=== PATIENT | female | born 1945 | race Caucasian/White ===

== ENCOUNTER → 2020-11-27 11:32 | Outpatient (CLI) | payer MEDICARE, SELFPAY ==
--- NOTE | 2020-11-27 11:37 | US_ITS ---
PROCEDURE: ULTRASOUND GUIDED LEFT THYROID FNA/BIOPSY. DATE: INDICATION: Female, 74 years old. Left thyroid nodule. PHYSICIAN: David Nielson M.D. MEDICATIONS: 2% lidocaine administered subcutaneously for local anesthesia. ACCESS SITE: Left - anterior approach. NEEDLE: 25-gauge FNA needle. SPECIMEN: Multiple FNA specimen collected and given to pathology. EBL: None. COMPLICATIONS: None immediate. PROCEDURE: The risks, benefits, and alternatives to the procedure were explained to the patient. The specific risk of hemorrhage requiring further treatment or intervention was detailed and accepted. Written informed consent was obtained. The patient was brought into the ultrasound room and placed in the supine position on the stretcher. An appropriate entry site was identified. The overlying skin was prepped and draped in the usual sterile fashion. 2% lidocaine was administered subcutaneously for local anesthesia. Under ultrasound guidance, a 25-gauge FNA needle was advanced into the lesion. Aspiration was performed and the needle was withdrawn. A total of 3 passes were performed with specimen collected and given to the pathologist who was present during the procedure. Hemostasis was achieved with manual compression. Repeat ultrasound images of the biopsy area was performed which demonstrated no gross bleeding or hematoma. An antibiotic ointment dressing was placed and the patient was given an icepack. The patient tolerated the procedure well without immediate complications. The patient was discharged in stable condition. US/FNA 1st Biopsy w/ US IMPRESSION: Successful ultrasound-guided left thyroid nodule FNA/biopsy, as described above. Electronically Signed: David Nielson MD at 12:56 EDT , Service support ,
--- NOTE | 2020-11-27 12:30 | ASPIG_PTH ---
PATIENT: SRIDEVI WILDER LOC: U#:[id number] AGE/SX: 79/F ROOM: RE11/27/[address]: Dr. Asad Dimas MD : 1945 BED: DIS: SPEC #: [id number] RECD: 11/27/20 12:51 STATUS: MARQUIS TETO #: [id number] SAWYER: 11/27/20 12:[address]: Asad Dimas DEPT: CYTOLOGY RECD BY: Erika Carlson Tissues: Thyroid gland, NOS Procedures: FNA Specimen Adequacy Special Stain Group II Surgery Specimen Level IV Cytology Other HEADER OPERATION: Ultrasound-guided left thyroid biopsy/fine needle aspiration PRE-OP DIAGNOSIS: Left thyroid nodule TISSUE SUBMITTED: Left thyroid ultrasound-guided FNA DIAGNOSIS CYTOLOGY Left thyroid nodule, ultrasound-guided FNA (smears and cell block): Consistent with benign follicular/colloid nodule. Adequate for evaluation. See comment. PALOMO:hansel 11/28/2020 COMMENT The specimen is evaluated at the time of biopsy by Dr. Mckay. Immediate Evaluation = Follicular cells are present. Adequate for evaluation. Correlation with clinical, radiologic findings and appropriate follow up are necessary. CYTOLOGY STUDY Slides are reviewed. CYTOLOGY GROSS Received is 0.5 ml of bloody fluid (three passes) labeled with the patient's name, and designated left thyroid. Seven imprints and seven paps are made from the submitted fluid and the rest is added to CytoLyt for cell block preparation. Submitted for cytology study. / SJ:rg 11/27/2020 TC:5 CPT: 43909, 63130, 07731
== END ==
PROVIDERS: PCP Family Medicine; Referring Provider Family Medicine; Visit Provider Family Medicine
DX: E04.1 Nontoxic single thyroid nodule (principal)
CPT/HCPCS: 10005; 88161; 88172; 88305; 88313

== ENCOUNTER → 2020-12-01 10:02 | Outpatient (CLI) | payer MEDICARE, SELFPAY ==
[2016-11-09 21:18] VITALS: BMI 32.3
--- NOTE | 2020-12-01 | EMB_PTH ---
PATIENT: SRIDEVI WILDER LOC: [facility] U#:[id number] AGE/SX: 79/F ROOM: RE12/01/[address]: Dr. Linus Cerda MD : 1945 BED: DIS: SPEC #: [id number] RECD: 12/01/20 11:49 STATUS: MARQUIS REQ #: [id number] SAWYER: 12/01/20 00:[address]: Linus Cerda DEPT: SURGICAL PATHOLOGY RECD BY: Randy Segundo ENTERED: 12/01/20 11:49 SP TYPE: ENDOM BX/C SUSAN DR: Dr. Asad Dimas MD Tissues: Endometrium, NOS Procedures: Surgery Specimen Level IV HEADER OPERATION: Endometrial biopsy PRE-OP DIAGNOSIS: Pelvic mass TISSUE SUBMITTED: Endometrial biopsy MICROSCOPIC DIAGNOSIS Endometrial biopsy: Strips of benign endometrial epithelium, consistent with atrophic endometrium and mucous. See comment. PALOMO:hansel 12/04/2020 COMMENT Clinical correlation and appropriate follow up are necessary. MICROSCOPIC DESCRIPTION Slides are reviewed. GROSS DESCRIPTION Received in fixative is one container labeled with the patient's name and designated EM biopsy. The specimen consists of multiple irregular fragments of schmidt mucoid tissue that in aggregate measure 2.5 x 0.2 x 0.1 cm. The specimen is totally submitted in one cassette. / SJ:rg 12/01/20 TC:4 CPT: 78138
[2020-12-05 15:50] LABS: Carcinoembryonic Antigen 1.1 ng/mL (0.0-4.7)
[2020-12-05 15:51] LABS: Carbohydrate Ag 19-9 2261 6 U/mL (0-35)
== END ==
PROVIDERS: PCP Family Medicine; Visit Provider Obstetrics & Gynecology
DX: R19.00 Intra-abdominal and pelvic swelling, mass and lump, unspecified site (principal)
CPT/HCPCS: 36415; 82378; 86301; 86304; 88305

== ENCOUNTER → 2021-06-11 12:27 | Outpatient (CLI) | payer MEDICARE, SELFPAY ==
--- NOTE | 2021-06-11 12:32 | US_ITS ---
STUDY: THYROID ULTRASOUND REASON FOR EXAM: Female, 75 years old. Thyroid nodules. TECHNIQUE: Ultrasound evaluation of the thyroid was performed with real-time and static pittman-scale imaging. COMPARISON: None. FINDINGS: RIGHT LOBE: The right lobe of the thyroid gland is enlarged and measures 6.1 cm x 2.8 cm x 3.1 cm. There is a heterogeneous echotexture. Multiple solid enhancing nodular thickening throughout the lobe. The largest in the mid portion of the right lobe and measures 2.7 cm x 2 cm x 1.5 cm.. Perinodular vascularity is seen. LEFT LOBE: The left lobe of the thyroid gland is enlarged and measures 10.1 cm x 6.6 cm x 4.6 cm. There is a heterogeneous echotexture. There is an 8.1 cm x 5.5 cm x 4.6 cm complex solid and cystic nodule. This nodule was biopsied on 11/27/2020. ISTHMUS: The isthmus measures 6 mm. The regional lymph nodes are normal. US/Thyroid IMPRESSION: Diffuse enlargement of both lobes of the thyroid gland. Dominant 8.1 cm x 5.5 cm x 4.6 cm complex solid and cystic mass in the left lobe as well as a dominant 2.7 cm x 2 cm x 1.5 cm solid and cystic mass in the right lobe. Electronically Signed: David Nielson MD at 12:27 EST , Service support ,
== END ==
PROVIDERS: PCP Family Medicine; Referring Provider Family Medicine; Visit Provider Family Medicine
DX: E04.1 Nontoxic single thyroid nodule (principal)
CPT/HCPCS: 76536

== ENCOUNTER → 2021-06-25 11:31 | Outpatient (CLI) | payer MEDICARE, SELFPAY ==
--- NOTE | 2021-06-25 11:36 | US_ITS ---
PROCEDURE: ULTRASOUND GUIDED RIGHT THYROID FNA/BIOPSY. DATE: 06/25/2021. INDICATION: Female, 75 years old. Heterogeneous nodules in the right lobe of the thyroid. PHYSICIAN: David Nielson M.D. MEDICATIONS: 2% lidocaine administered subcutaneously for local anesthesia. ACCESS SITE: Right - anterior approach. NEEDLE: 25-gauge FNA needle. SPECIMEN: Multiple FNA specimen collected and given to pathology. EBL: None. COMPLICATIONS: None immediate. PROCEDURE: The risks, benefits, and alternatives to the procedure were explained to the patient. The specific risk of hemorrhage requiring further treatment or intervention was detailed and accepted. Written informed consent was obtained. The patient was brought into the ultrasound room and placed in the supine position on the stretcher. An appropriate entry site was identified. The overlying skin was prepped and draped in the usual sterile fashion. 2% lidocaine was administered subcutaneously for local anesthesia. Under ultrasound guidance, a 25-gauge FNA needle was advanced into the lesion. Aspiration was performed and the needle was withdrawn. A total of 3 passes were performed with specimen collected and given to the pathologist who was present during the procedure. Hemostasis was achieved with manual compression. Repeat ultrasound images of the biopsy area was performed which demonstrated no gross bleeding or hematoma. An antibiotic ointment dressing was placed and the patient was given an icepack. The patient tolerated the procedure well without immediate complications. The patient was discharged in stable condition. US/FNA 1st Biopsy w/ US IMPRESSION: Successful ultrasound-guided right thyroid nodule FNA/biopsy, as described above. Electronically Signed: David Nielson MD at 12:47 EST , Service support ,
--- NOTE | 2021-06-25 12:00 | ASPIG_PTH ---
PATIENT: SRIDEVI WILDER LOC: [facility]#:[id number] AGE/SX: 79/F ROOM: RE06/25/[address]: Dr. Asad Dimas MD : 1945 BED: DIS: SPEC #: [id number] RECD: 06/25/21 12:30 STATUS: MARQUIS BOWDENCynthia #: [id number] SAWYER: 06/25/21 12:[address]: Asad Dimas DEPT: CYTOLOGY RECD BY: Erika Carlson Tissues: Thyroid gland, NOS Procedures: FNA Specimen Adequacy Special Stain Group II Surgery Specimen Level IV Cytology Other HEADER OPERATION: Ultrasound guided right thyroid, biopsy PRE-OP DIAGNOSIS: Right thyroid nodule TISSUE SUBMITTED: Right thyroid nodule, FNA DIAGNOSIS CYTOLOGY Right thyroid nodule, ultrasound-guided FNA (smears and cell block): Atypical follicular cells of undetermined significance. Adequate for evaluation. See comment. PALOMO:hansel 06/26/2021 COMMENT The specimen is evaluated at the time of FNA by Dr. Mckay. Immediate Evaluation = Follicular cells present. Adequate for evaluation. Correlation with clinical, radiologic findings and appropriate follow up are necessary. Please make reference to previous cytology ([id number]) left thyroid nodule, ultrasound-guided FNA with diagnosis of ?consistent with benign follicular/colloid nodule.? CYTOLOGY STUDY Slides are reviewed. CYTOLOGY GROSS Received is 0.3 cc of bloody fluid labeled with the patient's name, and designated right thyroid nodule, FNA. 9 imprints and 7 paps are made from the submitted fluid and the rest is added to CytoLyt for cell block preparation. Submitted for cytology study. / cc 06/25/21 TC:5 CPT: 99092, 74948, 60264
[2021-06-25] MEDS: Lidocaine 2% (20 ml mdv) 20 ML Vial INFILT (12:10)
== END | disposition home or self-care (01) ==
PROVIDERS: PCP Family Medicine; Referring Provider Family Medicine; Visit Provider Family Medicine
DX: E04.1 Nontoxic single thyroid nodule (principal)
CPT/HCPCS: 10005; 88161; 88172; 88305; 88313

== ENCOUNTER → 2022-06-26 | Outpatient (CLI) | payer MEDICARE, SELFPAY ==
--- NOTE | 2022-06-26 15:23 | US_ITS ---
STUDY: THYROID ULTRASOUND REASON FOR EXAM: Female, 76 years old. Thyromegaly. Bilateral thyroid nodules. TECHNIQUE: Ultrasound evaluation of the thyroid was performed with real-time and static pittman-scale imaging. COMPARISON: Comparison is made with prior sonogram dated 06/11/2021. FINDINGS: RIGHT LOBE: The right lobe of the thyroid gland is enlarged and measures 7.8 cm x 3.2 cm x 3.1 cm. There is a heterogeneous echotexture. Once again, multiple solid and cystic nodules are seen in the right lobe. The largest nodule measures 4.7 cm x 3.1 cm x 2.2 cm. This is in the mid pole. Increased vascularity. Biopsy recommended. LEFT LOBE: The left lobe of the thyroid gland is enlarged and measures 11.5 cm x 5.8 cm x 5.4 cm. There is a heterogeneous echotexture. Multiple solid and cystic nodules are seen. The largest complex nodule is in the mid pole and measures 7.1 cm x 5.6 cm x 4.3 cm. ISTHMUS: The isthmus measures 6 mm. The regional lymph nodes are normal. US/Thyroid IMPRESSION: Diffuse enlargement of both lobes of the thyroid gland worse on the left side with multiple bilateral nodules. The largest nodules in the left lobe. Biopsy recommended. Electronically Signed: David Nielson MD at 12:08 EST ,
== END | disposition home or self-care (01) ==
LOC: US 15:22
PROVIDERS: PCP Family Medicine; Referring Provider Family Medicine; Visit Provider Family Medicine
DX: E04.1 Nontoxic single thyroid nodule (principal)
CPT/HCPCS: 76536

== ENCOUNTER 2022-12-16 22:48 | Observation (INO) | payer MEDICARE, SELFPAY ==
[2022-12-16 22:48] VITALS: BP 120/96; PULSE 130; RESP 20; TEMP 35.8; O2SAT 95
--- NOTE | 2022-12-16 22:54 | EKG12_ITS ---
Test Reason : SOB/CP Blood Pressure : / mmHG Vent. Rate : 144 BPM Atrial Rate : 000 BPM P-R Int : 000 ms QRS Dur : 066 ms QT Int : 316 ms P-R-T Axes : 000 041 -21 degrees QTc Int : 489 ms Poor data quality, interpretation may be adversely affected Atrial fibrillation with rapid ventricular response Low voltage QRS Septal infarct , age undetermined Abnormal ECG Confirmed by SHRUTI CLARKE, VANITA ([id number]), school photograph editor ROYCE BOWENS ([id number]) on 12/18/2022 2:02:52 PM Referred By: FLORIDALMA Confirmed By:VANITA BAHENA MD
--- NOTE | 2022-12-16 23:05 | EDS_ITS ---
HPI History of Present Illness Chief Complaint: Shortness of Breath Narrative Narrative: 76-year-old female presenting with shortness of breath, tachycardia, chest tightness. She reports that she has had the symptoms for just about a month now. She followed up with her primary care office and her primary care was not in but she was started on Eliquis and metoprolol 25 mg p.o. twice daily. She reports that her heart rate has not improved and she is been on these medications for about a week. She is having trouble sleeping. She has orthopnea, dyspnea on exertion. No fever or chills. PFSH PFSH Home Medications apixaban 5 mg tablet (Eliquis) 5 mg PO BID 12/16/22 [History Last Taken Unknown] metoprolol succinate 25 mg tablet,extended release 24 hr 25 mg PO DAILY 12/16/22 [History Last Taken Unknown] furosemide 20 mg tablet (Lasix) 20 mg PO QODAY #30 tabs 12/17/22 [Rx Last Taken Unknown] metoprolol tartrate 50 mg tablet 50 mg PO BID #60 tabs 12/17/22 [Rx Last Taken Unknown] Allergy/AdvReac Type Severity Reaction Status Date / Time No Known Allergies Allergy Verified 11/09/16 21:20 Social History Smoking Status: Never smoker [facility] ED Constitutional Constitutional ED: Denies chills or fever(s) Eyes Eyes: Denies blurry vision or change in vision ENT ENT ED: Reports rhinorrhea Cardiovascular Cardiovascular: Reports chest pain, orthopnea, palpitations and racing heartbeat Respiratory/Chest Respiratory/Chest: Reports dyspnea, dyspnea on exertion and orthopnea Gastrointestinal Gastrointestinal: Denies abdominal pain, nausea or vomiting Genitourinary Genitourinary ED: Denies dysuria or hematuria Musculoskeletal Musculoskeletal: Denies arthralgias or back pain Integumentary Denies abscess Neurologic Neurologic: Denies headache(s) or paresthesias Psychiatric Psychiatric: Denies anxiety or depression EXAM Physical Exam Const Vital Signs: 12/16/22 22:48 12/16/22 23:21 12/16/22 23:23 Temperature 96.5 F L Temperature Source Temporal Pulse Rate 130 H 89 Respiratory Rate 20 H Respiratory Effort Short of Breath Respiratory Depth Normal Blood Pressure 120/96 H Blood Pressure Mean 104 Pulse Ox 95 Oxygen Delivery Method Room Air 12/17/22 00:43 Temperature Temperature Source Pulse Rate 105 H Respiratory Rate 27 H Respiratory Effort Respiratory Depth Blood Pressure 125/106 H Blood Pressure Mean 112 Pulse Ox 93 Oxygen Delivery Method Positive well nourished General Appearance ED: NAD; Negative for pallor HEENT Reports moist mucous membranes Eyes PERRL and EOMs intact bilaterally Neck no lymphadenopathy Resp Resp Narrative: Tachypneic. No accessory muscle use. Auscultation: diminished lung sounds Cardio Rate: tachycardic Rhythm: abnormal rhythm irregularly irregular GI non-tender Extremity General Extremety ED: Yes edema; Negative for tenderness General Extremity: edema Neuro oriented x3 and CN's II-XII intact bilaterally Sensorium / Orientation: alert Motor Exam: strength 5/5 throughout Psych Thought Process: normal thought process Skin no wounds General Skin Exam: Negative for jaundice or pallor MDM MDM MDM Narrative Medical decision making narrative: 36-year-old female presenting with tachycardia and shortness of breath. She is reporting orthopnea as well as dyspnea on exertion. She also states that she has lower extremity edema now. She has been like this for about a month and started on metoprolol and Eliquis about a week ago. She reports that her heart rate has not improved. I highly suspect that she is in CHF secondary to atrial fibrillation. Differential include ACS, pneumonia, anemia, electrolyte abnormalities, dehydration . She is anticoagulated for a week so I will not obtain a D-dimer. Patient given Cardizem 25 mg IV. CBC to assess white blood cell count, hemoglobin, platelets, differential. BMP to assess renal function, electrolytes, glucose, anion gap. High-sensitivity troponin and BNP to was used to assess for heart strain. EKG to assess for ischemia. Chest x-ray for pneumonia versus CHF. CBC shows no white blood cell count, hemoglobin hematocrit are stable. Platelets are normal. [place] normal at 0.9. GFR 65. There are some slight prerenal azotemia. High-sensitivity troponin is 13. EKG on my interpretation shows atrial fibrillation with rapid ventricular sponsor 144 bpm. CBC shows a white blood cell count of 10.1, hemoglobin of 14.9, hematocrit 47.2, platelets 256. Renal function and electrolytes within normal limits. High-sensitivity troponin is 13. BNP is 5-3.7. Chest x-ray does not show anything acute. Patient ambulated in the ER and maintaining a sat from 93- 89. She tolerated this well. I did want to have the patient admitted, however Dr. Flores felt he could get close follow-up as an outpatient and get the echocardiogram done. He recommended increasing metoprolol to 50 mg twice daily and starting her on Lasix 20 mg daily. She was given 40 of Lasix IV in the ED. This was all discussed with them and they are amenable to going home. Return precautions were discussed. Impression: 1. Atrial fibrillation with RVR 2. CHF Lab Data Attestation: I reviewed the patient's lab results. Labs: Laboratory Results - last 24 hr 12/16/22 12/16/22 12/16/22 23:10 23:10 23:10 WBC 10.1 RBC 5.10 Hgb 14.9 Hct 47.2 H MCV 92.5 MCH 29.2 MCHC 31.6 L RDW Std Deviation 48.7 H RDW Coeff of [place] 14.3 Plt Count 256 MPV 12.2 H Immature Gran % (Auto) 0.400 Neut % (Auto) 68.9 Lymph % (Auto) 18.3 L [place] % (Auto) 10.6 H Eos % (Auto) 1.2 Baso % (Auto) 0.6 Absolute Neuts (auto) 7.0 Absolute Lymphs (auto) 1.85 Nucleated RBC % 0 Sodium 143 Potassium 3.9 Chloride 113 H Carbon Dioxide 22.0 Anion Gap 8 BUN 30 H Creatinine 0.89 Estim Creat Clear Calc 51.13 Est GFR (MDRD) Af Amer 79 Est GFR (MDRD) Non-Af 65 BUN/Creatinine Ratio 33.6 H Glucose 132 H Calcium 8.8 Troponin I High Sens 13 B-Natriuretic Peptide 503.7 H Radiography Diagnostic Testing: Clinical Impression(s) from Imaging Studies Chest X-Ray 12/16/22 23:25 IMPRESSION: Mild linear scarring versus atelectasis within mid to lower lungs. Electronically Signed: Nando Richardson MD at 23:48 EDT , Discharge Plan Triage Chief Complaint: Shortness of Breath ED Provider: Ivan Baugh Dx/Rx/DC Orders Instructions: ED AFIB, ED Heart Failure, Congestive (CHF) Prescriptions: New metoprolol tartrate 50 mg tablet 50 mg PO BID Qty: 60 0RF furosemide [Lasix] 20 mg tablet 20 mg PO QODAY Qty: 30 0RF No Action metoprolol succinate 25 mg Tablet Extended Release 24 Hr 25 mg PO DAILY Eliquis 5 mg Tablet 5 mg PO BID Primary Care Provider: Asad Dimas Referrals: Asad Dimas MD [Primary Care Provider] - Disposition Disposition: Home, Self Care
[2022-12-16 23:10] VITALS: BMI 37.3
[2022-12-16] MEDS: 0.9% Normal Saline 1,000 ML 999 ML IV (23:14)
[2022-12-16] MEDS: dilTIAZem 25 MG/5 ML Vial IV BOLUS (23:14)
[2022-12-16 23:16] LABS: Absolute Lymphocyte Count 1.85 X10^3/uL (0.83-4.51); Basophil# 0.06 X10^3/uL; Basophil% 0.6 % (0-1); Eosinophil# 0.12 X10^3/uL; Eosinophils% 1.2 % (0-5); Hematocrit 47.2 % (37-47); Hemoglobin 14.9 g/dL (12.0-15.0); Lymphocyte # 1.85 X10^3/ul (0.83-4.51); Lymphocyte % 18.3 % (19-41); Mean Corp Hgb Conc 31.6 g/dL (32-36); Mean Corpuscular Hgb 29.2 pg (27.0-32.0); Mean Corpuscular Volume 92.5 fL (81-99); Mean Platelet Vol. 12.2 fl (6.2-12.0); Monocyte# 1.07 X10^3/uL; Monocyte% 10.6 % (0-10); NRBC Flagged by Analyzer 0 % (0-5); Neutrophil # 6.97 X10^3/uL (2.7-7.7); Neutrophil % 68.9 % (47-70); Platelet Count 256 K/mm3 (150-450); RBC Distribution Width CV 14.3 % (11.6-14.6); RBC Distribution Width SD 48.7 fl (35.1-43.9); White Blood Count 10.1 K/mm3 (4.4-11.0)
[2022-12-16 23:21] VITALS: PULSE 89
--- NOTE | 2022-12-16 23:25 | RAD_ITS ---
INDICATION: chest pain EXAMINATION/TECHNIQUE: X-RAY - AP view of chest COMPARISON: None FINDINGS: LINES/DEVICES: None. LUNGS: No overt pulmonary edema or focal airspace consolidation. Small linear opacities bilateral mid to lower lungs. No sizable pleural effusion. No detectable pneumothorax. MEDIASTINUM AND CARDIOVASCULAR STRUCTURES: Heart size within normal limits for imaging technique. Atherosclerotic calcifications along aorta. BONES AND SOFT TISSUES: Skeletal degenerative changes. RAD/Chest 1 View (Portable) IMPRESSION: Mild linear scarring versus atelectasis within mid to lower lungs. Electronically Signed: Nando Richardson MD at 23:48 EDT ,
[2022-12-16 23:33] LABS: Anion Gap 8 (5-15); BUN 30 mg/dL (7-18); BUN/Creat Ratio 33.6 RATIO (10-20); Calcium,Total 8.8 mg/dL (8.5-10.1); Chloride 113 mmol/L (98-107); Creatinine, Serum 0.89 mg/dL (0.55-1.02); EST Glomerular Filtration Rate 65 mL/min (>60); Est Glom Filt Rate - Afr Amer 79 mL/min (>60); Estimated Creatinine Clearance 51.13 ml/min; Glucose 132 mg/dL (74-106); Potassium 3.9 mmol/L (3.5-5.1); Sodium Level 143 mmol/L (136-145); Troponin-I HS (w/2H Reflex) 13 pg/mL (3.0-54.0)
[2022-12-16 23:35] LABS: BNP,B-Type NATRIURETIC PEPTIDE 503.7 pg/mL (0-100)
[2022-12-17] VITALS (32 sets, daily range): BP systolic 116–155; BP diastolic 81–122; PULSE 78–127; RESP 20–38; TEMP 36.4–36.7; O2SAT 88–96; BMI 36.7
[2022-12-17] MEDS: Furosemide 40 MG/4 ML Vial IV ×3 (00:15→18:06)
[2022-12-17 01:13] LABS: Reflex Troponin-HS? (from REC) Y
[2022-12-17] MEDS: Metoprolol(XL)Succ 25 MG Tablet PO (01:55)
[2022-12-17 02:06] LABS: Troponin-I HS 13 pg/mL (3.0-54.0)
--- NOTE | 2022-12-17 03:21 | PCM.HP.STD ---
[facility] - General General Date of Admission: 12/17/22 Date of Service: 12/17/22 Chief Complaint: Shortness of breath [facility] Narrative SRIDEVI WILDER, is a 76 F who presents to the emergency room with a chief complaint of shortness of breath. Patient has significant past medical history of atrial fibrillation diagnosed 1 month ago for which she has been taking metoprolol 25 mg p.o. twice daily. Despite beta-serenity therapy and being on Eliquis patient presents with an irregularly irregular heart rate of 140 bpm with shortness of breath. Chest x-ray is unremarkable BNTP is slightly above 500, and other laboratory studies are unremarkable. Despite receiving Cardizem and getting rate control only temporarily patient rebounded with a heart rate of 130 and therefore admission was requested. Patient denies any chest pain she does have shortness of breath, no nausea vomiting or diarrhea or fevers or chills. Patient will be admitted to the progressive care unit for further management of atrial fibrillation with RVR and an echocardiogram will be obtained. [facility] Home Medications apixaban 5 mg tablet (Eliquis) 5 mg PO BID 12/16/22 [History Last Taken Unknown] metoprolol succinate 25 mg tablet,extended release 24 hr 25 mg PO DAILY 12/16/22 [History Last Taken Unknown] furosemide 20 mg tablet (Lasix) 20 mg PO QODAY #30 tabs 12/17/22 [Rx Last Taken Unknown] metoprolol tartrate 50 mg tablet 50 mg PO BID #60 tabs 12/17/22 [Rx Last Taken Unknown] Allergy/AdvReac Type Severity Reaction Status Date / Time No Known Allergies Allergy Verified 11/09/16 21:20 Social History Smoking Status: Never smoker ROS Constitutional Constitutional: Denies chills or fever(s) Eyes Eyes: Denies blurry vision ENT HEENT: Denies abnormal hearing Cardiovascular Cardiovascular: Reports orthopnea and palpitations; Denies chest pain Respiratory/Chest Respiratory/Chest: Denies cough Gastrointestinal Gastrointestinal: Denies abdominal pain Genitourinary Genitourinary: Denies dysuria Musculoskeletal Musculoskeletal: Denies back pain Integumentary Integumentary: Denies dry skin Neurologic Neurologic: Denies abnormal speech or confusion Psychiatric Psychiatric: Denies anxiety Vital Signs Vital Signs Vital Signs: 12/16/22 22:48 12/16/22 23:21 12/16/22 23:23 Temperature 96.5 F L Temperature Source Temporal Pulse Rate 130 H 89 Respiratory Rate 20 H Respiratory Effort Short of Breath Respiratory Depth Normal Blood Pressure 120/96 H Blood Pressure Mean 104 Pulse Ox 95 Oxygen Delivery Method Room Air 12/17/22 00:43 12/17/22 03:03 Temperature Temperature Source Pulse Rate 105 H 121 H Respiratory Rate 27 H 23 H Respiratory Effort Respiratory Depth Blood Pressure 125/106 H 137/98 H Blood Pressure Mean 112 111 Pulse Ox 93 93 Oxygen Delivery Method Room Air Weight Weight: 231 lb 14.821 oz Body Mass Index (BMI) 37.3 Physical Exam Const alert, oriented x3 and no apparent distress HEENT normocephalic and head/scalp atraumatic Eyes PERRL Neck no lymphadenopathy Lymph Lymphatic: no lymphadenopathy noted Resp normal respiratory effort, normal air movement and clear to auscultation bilaterally Cardio S1 normal heart sound, S2 normal heart sound and no murmurs Rhythm: abnormal rhythm irregularly irregular GI soft to palpation and non-tender Extremity General Extremity: edema bilateral (trace) Skin General Skin Exam: no breakdown Neuro no focal motor deficits and no sensory deficits noted Psych thought process normal Results Lab / Micro Data Result Diagrams: 12/16/22 23:10 12/16/22 23:10 Labs: Laboratory Results - last 24 hr 12/16/22 23:10: WBC 10.1, RBC 5.10, Hgb 14.9, Hct 47.2 H, MCV 92.5, MCH 29.2, MCHC 31.6 L, RDW Std Deviation 48.7 H, RDW Coeff of [place] 14.3, Plt Count 256, MPV 12.2 H, Immature Gran % (Auto) 0.400, Neut % (Auto) 68.9, Lymph % (Auto) 18.3 L, [place] % (Auto) 10.6 H, Eos % (Auto) 1.2, Baso % (Auto) 0.6, Absolute Neuts (auto) 7.0, Absolute Lymphs (auto) 1.85, Nucleated RBC % 0 12/16/22 23:10: Sodium 143, Potassium 3.9, Chloride 113 H, Carbon Dioxide 22.0, Anion Gap 8, BUN 30 H, Creatinine 0.89, Estim Creat Clear Calc 51.13, Est GFR (MDRD) Af Amer 79, Est GFR (MDRD) Non-Af 65, BUN/Creatinine Ratio 33.6 H, Glucose 132 H, Calcium 8.8, Troponin I High Sens 13 12/16/22 23:10: B-Natriuretic Peptide 503.7 H 12/17/22 01:24: Troponin I High Sens 13 Radiology Impression Chest X-Ray 12/16/22 23:25 IMPRESSION: Mild linear scarring versus atelectasis within mid to lower lungs. Electronically Signed: Nando Richardson MD at 23:48 EDT , Assessment & Plan Assessment/Plan (1) Atrial fibrillation with RVR: PLAN: Plan 1 atrial fibrillation with rapid ventricular response?admit patient to progressive care unit, will use Cardizem drip for rate control, consult cardiology to evaluate patient in the a.m. we will order echocardiogram as well. Patient may need to be placed on antiarrhythmic agent or be considered for transesophageal echocardiogram and subsequent cardioversion. 2. DVT prophylaxis?patient is on Eliquis and has been taking it for the past week due to atrial fibrillation Charges/Coding Visit Charges Inpatient E&M: 04693 Init Hosp L2
--- NOTE | 2022-12-17 04:06 | ECHOCS_ITS ---
Reason For Study: A. fib Procedure This was a 2D Doppler, Color Flow transthoracic echocardiogram. The study was technically difficult. Exam performed portable in patient room. Left Ventricle Normal LV size. The estimated ejection fraction is 25 %. There is moderate to severe global hypokinesis of the left ventricle. Right Ventricle Normal RV size. Normal systolic function. Atria The left atrium is moderately enlarged. The right atrium is mildly enlarged. Mitral Valve Normal mitral valve. Moderate (2+) posteriorly directed mitral valve insufficiency. Tricuspid Valve Normal tricuspid valve. Mild to moderate (1-2+) tricuspid valve insufficiency. Pulmonary artery systolic pressure is 48 mmHg. Aortic Valve The aortic valve is not well visualized. Pulmonic Valve The pulmonic valve is not well visualized. Great Vessels Normal aortic root. The pulmonary artery is normal size. Normal inferior vena cava. Pericardium/Pleural No pericardial effusion. Medication Diluted definity 2.5ml given slow IV push to enhance endocardial definition. MMode/2D Measurements & Calculations RVDd: 4.7 cm Ao root diam: 2.9 cm LAV(MOD-bp): 96.1 ml LAV(MOD-bp) Indexed: 45.5 ml/m2 LAV(MOD-sp2): 70.0 ml LAV(MOD-sp4): 133.8 ml SV(MOD-sp4): 32.4 ml LVAd ap4: 34.4 cm2 LVAd ap2: 38.1 cm2 LVLd ap4: 7.7 cm LVLd ap2: 8.1 cm EDV(MOD-sp4): 122.8 ml EDV(MOD-sp2): 145.4 ml EDV(sp4-el): 130.0 ml EDV(sp2-el): 152.2 ml LVAs ap4: 27.5 cm2 LVAs ap2: 28.6 cm2 LVLs ap4: 6.8 cm LVLs ap2: 7.4 cm ESV(MOD-sp4): 90.4 ml ESV(MOD-sp2): 93.2 ml ESV(sp4-el): 93.9 ml ESV(sp2-el): 94.5 ml EF(MOD-sp4): 26.4 % EF(MOD-sp2): 35.9 % EF(sp4-el): 27.8 % SV(MOD-sp2): 52.2 ml SV(sp4-el): 36.1 ml LA A4 area: 33.0 cm2 LA dimension(2D): 4.5 cm RA A4 area: 20.2 cm2 Doppler Measurements & Calculations MV E max cb: 100.7 cm/sec Ao V2 max: 118.4 cm/sec LV V1 max: 76.9 cm/sec Ao max P.8 mmHg LV V1 max P.4 mmHg Ao V2 mean: 83.0 cm/sec LV V1 mean P.3 mmHg Ao mean P.2 mmHg LV V1 mean: 52.4 cm/sec Ao V2 VTI: 20.1 cm LV V1 VTI: 12.0 cm AV (velocity ratio): 0.60 PA V2 max: 63.4 cm/sec TR max cb: 317.2 cm/sec TR max P.2 mmHg ECHO/Echo Complete W/ Contrast Interpretation Summary Normal LV size. The estimated ejection fraction is 25 %. There is moderate to severe global hypokinesis of the left ventricle. Moderate (2+) posteriorly directed mitral valve insufficiency. Pulmonary artery systolic pressure is 48 mmHg. Contrast injection was performed. Ordering Physician: Bronson Flores Referring Physician: Asad Dimas Performed By: Keily Reyes RDCS
[2022-12-17 06:08] LABS: Anion Gap 8 (5-15); BUN 27 mg/dL (7-18); BUN/Creat Ratio 32.3 RATIO (10-20); Calcium,Total 8.5 mg/dL (8.5-10.1); Chloride 114 mmol/L (98-107); Creatinine, Serum 0.84 mg/dL (0.55-1.02); EST Glomerular Filtration Rate 71 mL/min (>60); Est Glom Filt Rate - Afr Amer 85 mL/min (>60); Estimated Creatinine Clearance 54.17 ml/min; Glucose 116 mg/dL (74-106); Potassium 3.6 mmol/L (3.5-5.1); Sodium Level 144 mmol/L (136-145); Troponin-I HS 11 pg/mL (3.0-54.0)
--- NOTE | 2022-12-17 06:41 | NURSING ---
Patient destat to 88% on room air applied 2L oxygen on patient spo2 96% wears no home oxygen.
[2022-12-17] MEDS: 0.9% Saline Lock 10 ML Syringe IV ×3 (06:44→18:06)
--- NOTE | 2022-12-17 07:45 | PCM.CONS.C ---
Assessment & Plan Assessment/Plan (1) Atrial fibrillation with RVR: PLAN: She presents with atrial fibrillation with rapid ventricular response rate. My recommendations will be as follows: Echocardiogram to assess ventricular function Continue anticoagulation with Eliquis 5 mg twice a day Wean off intravenous diltiazem and increase metoprolol to 50 mg twice a day and may need to add diltiazem as necessary Depending on the ejection fraction may be a candidate for the change A-fib trial. (2) CHF (congestive heart failure), NYHA class III: PLAN: Patient presents with shortness of breath as well as pedal edema. I suspect the above is due to the atrial fibrillation and hypertension. Echocardiogram will assess ventricular function Intravenous diuresis with Lasix for now and then switch to oral Lasix and depending on the results of the echocardiogram further recommendations will be made (3) HTN (hypertension), benign: PLAN: Continue beta-serenity for now Consider adding CHANDLER inhibitor depending on the results of the echocardiogram. Thank you for allowing me to participate in the care of your patient. Please don't hesitate to call if any issues arise. HPI Consult Data Date of Consult: 12/17/22 HPI Narrative HPI Narrative: SRIDEVI WILDER, is a 76 F who presents to the emergency room. Patient apparently had seen her primary physician and had been diagnosed with atrial fibrillation and had been started on anticoagulation as well as low-dose beta-serenity. She thought that she had a pneumonia and was not getting better and presented to the emergency room yesterday was noted to be in atrial fibrillation with a rapid ventricular response rate. She has complaint of shortness of breath with exertion as well as pedal edema. She has had no dizziness or diaphoresis no near syncope or syncope and no chest pain. In emergency room she was noted to be in atrial fibrillation with a rapid ventricular response rate she was started on intravenous diltiazem admitted to the telemetry care unit and cardiology consulted for further evaluation and management. [facility] [place] Home Medications apixaban 5 mg tablet (Eliquis) 5 mg PO BID 12/16/22 [History Last Taken Unknown] metoprolol succinate 25 mg tablet,extended release 24 hr 25 mg PO DAILY 12/16/22 [History Last Taken Unknown] furosemide 20 mg tablet (Lasix) 20 mg PO QODAY #30 tabs 12/17/22 [Rx Last Taken Unknown] metoprolol tartrate 50 mg tablet 50 mg PO BID #60 tabs 12/17/22 [Rx Last Taken Unknown] Allergy/AdvReac Type Severity Reaction Status Date / Time No Known Allergies Allergy Verified 11/09/16 21:20 Social History Smoking Status: Never smoker ROS Constitutional Constitutional: Denies fever(s) or weight loss Eyes Eyes: Reports systems reviewed and no addt'l complaints, except as documented ENT HEENT: Reports systems reviewed and no addt'l complaints, except as documented Cardiovascular Cardiovascular: Reports dyspnea at rest, dyspnea on exertion, palpitations and paroxysmal nocturnal dyspnea; Denies chest pain at rest, chest pain with activity or edema Respiratory/Chest Respiratory/Chest: Reports dyspnea on exertion, productive cough, shortness of breath at rest and shortness of breath with exertion Gastrointestinal Gastrointestinal: Denies change in bowel habits, nausea, vomiting or weight changes Genitourinary Genitourinary: Denies difficulty urinating Musculoskeletal Musculoskeletal: Denies joint stiffness or muscle weakness Integumentary Integumentary: Denies lesions Neurologic Neurologic: Denies dizziness or syncope Psychiatric Psychiatric: Denies anxiety Endocrine Endocrinology: Denies excessive sweating or fatigue Hematologic/Lymphatic Hematologic/Lymphatic: Denies anemia Allergic/Immunologic Allergic/Immunologic: Denies seasonal rhinorrhea Physical Exam Const alert, oriented x3 and no apparent distress General Appearance: cooperative HEENT hearing grossly normal bilaterally Head and Scalp: atraumatic Eyes EOMs intact bilaterally Neck General: normal visual inspection Chest inspection of chest normal and palpation of chest normal Resp normal respiratory effort Auscultation: clear to auscultation bilaterally Cardio S1 normal heart sound and S2 normal heart sound Jugular Venous Distention: JVD Rhythm: abnormal rhythm regularly irregular GI normal to inspection, nondistended, normoactive bowel sounds Extremity normal capillary refill General Extremity: edema bilateral Peripheral Pulses: Yes pulses 2+ throughout and femoral pulses present Skin no rashes or lesions noted Neuro oriented x3 and CN's II-XII intact bilaterally Psych Appearance: grossly normal and appropriate Risk Stratification Risk Stratification Applicable: No Objective Data Vital Signs: Vital Signs Temp Pulse Resp BP Pulse Ox O2 Del Method 97.5 F L 87 27 H 129/91 H 94 Room Air 12/17/22 04:31 12/17/22 07:00 12/17/22 07:00 12/17/22 07:00 12/17/22 07:00 12/17/22 07:00 Oxygen Delivery Method Room Air Weight: 227 lb 8.273 oz Body Mass Index (BMI) 36.7 Intake & Output: Intake and Output for Last 24 Hours 12/15/22 12/16/22 12/17/22 23:59 23:59 23:59 Intake Total 83.25 / 83.25 29.92 / 29.92 Balance 83.25 / 83.25 29.92 / 29.92 Lab / Micro Data Result Diagrams: 12/16/22 23:10 12/17/22 05:31 Labs: Laboratory Results - last 24 hr 12/16/22 23:10: WBC 10.1, RBC 5.10, Hgb 14.9, Hct 47.2 H, MCV 92.5, MCH 29.2, MCHC 31.6 L, RDW Std Deviation 48.7 H, RDW Coeff of Kaleigh 14.3, Plt Count 256, MPV 12.2 H, Immature Gran % (Auto) 0.400, Neut % (Auto) 68.9, Lymph % (Auto) 18.3 L, Richardson % (Auto) 10.6 H, Eos % (Auto) 1.2, Baso % (Auto) 0.6, Absolute Neuts (auto) 7.0, Absolute Lymphs (auto) 1.85, Nucleated RBC % 0 12/16/22 23:10: Sodium 143, Potassium 3.9, Chloride 113 H, Carbon Dioxide 22.0, Anion Gap 8, BUN 30 H, Creatinine 0.89, Estim Creat Clear Calc 51.13, Est GFR (MDRD) Af Amer 79, Est GFR (MDRD) Non-Af 65, BUN/Creatinine Ratio 33.6 H, Glucose 132 H, Calcium 8.8, Troponin I High Sens 13 12/16/22 23:10: B-Natriuretic Peptide 503.7 H 12/17/22 01:24: Troponin I High Sens 13 12/17/22 05:31: Sodium 144, Potassium 3.6, Chloride 114 H, Carbon Dioxide 22.0, Anion Gap 8, BUN 27 H, Creatinine 0.84, Estim Creat Clear Calc 54.17, Est GFR (MDRD) Af Amer 85, Est GFR (MDRD) Non-Af 71, BUN/Creatinine Ratio 32.3 H, Glucose 116 H, Calcium 8.5, Troponin I High Sens 11 Cardiology Labs/Tests 12/16/22 23:10: WBC 10.1, RBC 5.10, Hgb 14.9, Hct 47.2 H, MCV 92.5, MCH 29.2, MCHC 31.6 L, Plt Count 256, MPV 12.2 H, Immature Gran % (Auto) 0.400, Neut % (Auto) 68.9, Lymph % (Auto) 18.3 L, Richardson % (Auto) 10.6 H, Eos % (Auto) 1.2, Baso % (Auto) 0.6, Absolute Neuts (auto) 7.0, Nucleated RBC % 0 12/16/22 23:10: Sodium 143, Potassium 3.9, Chloride 113 H, Carbon Dioxide 22.0, Anion Gap 8, BUN 30 H, Creatinine 0.89, Est GFR (MDRD) Af Amer 79, Est GFR (MDRD) Non-Af 65, BUN/Creatinine Ratio 33.6 H, Glucose 132 H, Calcium 8.8 12/16/22 23:10: B-Natriuretic Peptide 503.7 H 12/17/22 05:31: Sodium 144, Potassium 3.6, Chloride 114 H, Carbon Dioxide 22.0, Anion Gap 8, BUN 27 H, Creatinine 0.84, Est GFR (MDRD) Af Amer 85, Est GFR (MDRD) Non-Af 71, BUN/Creatinine Ratio 32.3 H, Glucose 116 H, Calcium 8.5 Rhythm: EKG: ECHO: Stress Test: Cardiac Cath: PCI: CT Surgery: Holter monitor: EPS: PPM: CXR: Chest CT Scan: Radiography Diagnostic Testing: Radiology Impression Chest X-Ray 12/16/22 23:25 IMPRESSION: Mild linear scarring versus atelectasis within mid to lower lungs. Electronically Signed: Nando Richardson MD at 23:48 EDT ,
--- NOTE | 2022-12-17 08:35 | PCM.PN.HOSP ---
Reason for Visit Reason for Visit: Diagnoses Unspecified atrial fibrillation (12/17/22) Subjective Subjective Feeling better. Still short of breath. Notes that she has lower extremity edema. Objective Data Objective Data Vital Signs: Vital Signs Temp Pulse Resp BP Pulse Ox O2 Del Method 36.4 C L 87 27 H 129/91 H 94 Room Air 12/17/22 04:31 12/17/22 07:00 12/17/22 07:00 12/17/22 07:00 12/17/22 07:00 12/17/22 07:00 Oxygen Delivery Method Room Air Weight: 103.2 kg Body Mass Index (BMI) 36.7 Intake & Output: Intake and Output for Last 24 Hours 12/15/22 12/16/22 12/17/22 23:59 23:59 23:59 Intake Total 83.25 / 83.25 48.67 / 48.67 Balance 83.25 / 83.25 48.67 / 48.67 Lab / Micro Data Result Diagrams: 12/16/22 23:10 12/17/22 05:31 Labs: Laboratory Results - last 24 hr 12/16/22 23:10: WBC 10.1, RBC 5.10, Hgb 14.9, Hct 47.2 H, MCV 92.5, MCH 29.2, MCHC 31.6 L, RDW Std Deviation 48.7 H, RDW Coeff of Kaleigh 14.3, Plt Count 256, MPV 12.2 H, Immature Gran % (Auto) 0.400, Neut % (Auto) 68.9, Lymph % (Auto) 18.3 L, Warrick % (Auto) 10.6 H, Eos % (Auto) 1.2, Baso % (Auto) 0.6, Absolute Neuts (auto) 7.0, Absolute Lymphs (auto) 1.85, Nucleated RBC % 0 12/16/22 23:10: Sodium 143, Potassium 3.9, Chloride 113 H, Carbon Dioxide 22.0, Anion Gap 8, BUN 30 H, Creatinine 0.89, Estim Creat Clear Calc 51.13, Est GFR (MDRD) Af Amer 79, Est GFR (MDRD) Non-Af 65, BUN/Creatinine Ratio 33.6 H, Glucose 132 H, Calcium 8.8, Troponin I High Sens 13 12/16/22 23:10: B-Natriuretic Peptide 503.7 H 12/17/22 01:24: Troponin I High Sens 13 12/17/22 05:31: Sodium 144, Potassium 3.6, Chloride 114 H, Carbon Dioxide 22.0, Anion Gap 8, BUN 27 H, Creatinine 0.84, Estim Creat Clear Calc 54.17, Est GFR (MDRD) Af Amer 85, Est GFR (MDRD) Non-Af 71, BUN/Creatinine Ratio 32.3 H, Glucose 116 H, Calcium 8.5, Troponin I High Sens 11 Radiography Diagnostic Testing: Radiology Impression Chest X-Ray 12/16/22 23:25 IMPRESSION: Mild linear scarring versus atelectasis within mid to lower lungs. Electronically Signed: Nando Richardson MD at 23:48 EDT , Physical Exam Const alert and no apparent distress HEENT head/scalp atraumatic and moist oral mucous membranes Eyes PERRL Resp normal respiratory effort and no retractions Resp Narrative: Coarse breath sounds bilaterally Cardio regular rate, regular rhythm, S1 normal heart sound and S2 normal heart sound GI normal to inspection, nondistended, normoactive bowel sounds and soft to palpation Extremity Extremity Narrative: 2+ lower extremity edema Assessment & Plan Assessment/Plan (1) Atrial fibrillation with RVR: PLAN: started on dilt gtt. Seen by cardiology, weaned off dilt gtt and increase metoprolol tartrate to 50 BID. Patient to be evaluated for the Change Afib Trial (2) CHF (congestive heart failure), NYHA class III: PLAN: Acute heart failure with reduced ejection fraction EF is 25% with moderate to severe global hypokinesis of left ventricle. No prior echocardiogram in our system. on IV furosemide PLAN: Plan VTE prophylaxis: not indicated as she already anticoagulated. Charges/Coding Visit Charges Inpatient E&M: 37541 Subs Hosp L2
[2022-12-17 08:58] LABS: AST(SGOT) 42 U/L (15-37); Alanine Aminotransfer ALT/SGPT 89 U/L (13-56); Alkaline Phosphatase 91 U/L (45-117); Bilirubin, Direct 0.28 mg/dL (0.00-0.30); Cholesterol 137 mg/dL (200); Globulin 3.7 g/dL (2.2-4.2); High Density Lipoprotein 35 mg/dL; Protein, Total 6.7 g/dL (6.4-8.2); Thyroid Stim Hormone (TSH) 1.62 uIU/mL (0.358-3.74); Triglycerides 81 mg/dL; Very Low Density Lipoprotein 16 mg/dL (5-40)
[2022-12-17] MEDS: APIXABAN 5 MG TABLET PO ×2 (09:00→21:53)
[2022-12-17] MEDS: Metoprolol Tartrate 50 MG Tablet PO ×2 (09:00→21:53)
--- NOTE | 2022-12-17 16:45 | CASEMGMT ---
RN CM Face to Face with patient for initial transition planning/care coordination assessment. RN CM introduced self and role at [facility]. Patient lying in bed, alert and oriented. family at bedside. Patient willing to participate in assessment and is able to answer all questions appropriately. Care providers, pharmacy, and demographics verified. Patient wishes to discharge home, denies need for home health at this time. Patient states she has no further needs or concerns at this time. CM to follow for discharge planning needs that may arise. PCP: Wing Specialists: none Preferred Pharmacy: [facility] [place] Insurance: [employer] [facility] Prescription Benefit: yes Living Will/HPOA: yes, papers copied and placed in chart. LNOK: daughter, sons Living Arrangements: Patient lives with in a single story home with 2 steps to enter. Patient states she is independent at home. Transportation: self, DME/HHC: Bj has shower chair, BSC, raised toilet, cane, walker, wheelchair at home. Patient has had [facility] in the past. Disposition Plan: Patient to discharge home with family support and follow-up plans in place. Shannon MISTRYN, RN, CM
[2022-12-18 00:36] VITALS: BP 117/95; PULSE 86; RESP 16; TEMP 36.8; O2SAT 95
[2022-12-18 04:10] VITALS: BP 129/93; PULSE 88; RESP 16; TEMP 35.9; O2SAT 96
--- NOTE | 2022-12-18 07:31 | PN.CARD_ITS ---
Objective Data Vital Signs: Vital Signs Temp Pulse Resp BP Pulse Ox O2 Del Method O2 Flow Rate 96.6 F L 88 16 129/93 H 96 Nasal Cannula 1 12/18/22 04:10 12/18/22 04:10 12/18/22 04:10 12/18/22 04:10 12/18/22 04:10 12/18/22 04:10 12/18/22 04:10 Oxygen Flow Rate (L/min) 1 Oxygen Delivery Method Nasal Cannula Weight: 227 lb 8.273 oz Body Mass Index (BMI) 36.7 Intake & Output: Intake and Output for Last 24 Hours 12/16/22 12/17/22 12/18/22 23:59 23:59 23:59 Intake Total 83.25 / 83.25 1059.92 / 1059.92 0 / 0 Output Total 1500 / 1500 0 / 0 Balance 83.25 / 83.25 -440.08 / -440.08 0 / 0 Lab / Micro Data Result Diagrams: 12/16/22 23:10 12/17/22 05:31 Labs: Laboratory Results - last 24 hr 12/17/22 05:31: Total Bilirubin 0.90, Direct Bilirubin 0.28, AST 42 H, ALT 89 H, Alkaline Phosphatase 91, Total Protein 6.7, Albumin 3.0 L, Globulin 3.7, Tri glycerides 81, Cholesterol 137, LDL Cholesterol 86, VLDL Cholesterol 16, HDL Cholesterol 35 L, TSH 1.62 Cardiology Labs/Tests 12/17/22 05:31: Total Bilirubin 0.90, Direct Bilirubin 0.28, Triglycerides 81, Cholesterol 137, LDL Cholesterol 86, VLDL Cholesterol 16, HDL Cholesterol 35 L Rhythm: EKG: ECHO: Stress Test: Cardiac Cath: PCI: CT Surgery: Holter monitor: EPS: PPM: CXR: Chest CT Scan: Radiography Diagnostic Testing: Radiology Impression Echocardiogram 12/17/22 04:06 Interpretation Summary Normal LV size. The estimated ejection fraction is 25 %. There is moderate to severe global hypokinesis of the left ventricle. Moderate (2+) posteriorly directed mitral valve insufficiency. Pulmonary artery systolic pressure is 48 mmHg. Contrast injection was performed. Ordering Physician: Bronson Flores Referring Physician: Asad Dimas Performed By: Keily Reyes RDCS Physical Exam Const alert and no apparent distress HEENT head/scalp atraumatic and moist oral mucous membranes Eyes PERRL Resp normal respiratory effort and no retractions Resp Narrative: Coarse breath sounds bilaterally Cardio S1 normal heart sound and S2 normal heart sound Rhythm: abnormal rhythm irregularly irregular GI normal to inspection, nondistended, normoactive bowel sounds and soft to palpation Extremity Extremity Narrative: 2+ lower extremity edema Assessment & Plan Assessment/Plan (1) Atrial fibrillation with RVR: PLAN: Patient's heart rate is currently improved. We will continue anticoagulation as well as beta-serenity. (2) CHF (congestive heart failure), NYHA class III: PLAN: Acute heart failure with reduced ejection fraction EF is 25% with moderate to severe global hypokinesis of left ventricle. We will continue diuretics switching from IV to p.o. Lasix And spironolactone Add ARNI Consider Farxiga as outpatient Continue metoprolol PLAN: Plan VTE prophylaxis: not indicated as she already anticoagulated.
[2022-12-18 08:12] LABS: Anion Gap 9 (5-15); BUN 29 mg/dL (7-18); BUN/Creat Ratio 32.8 RATIO (10-20); Calcium,Total 8.3 mg/dL (8.5-10.1); Chloride 110 mmol/L (98-107); Creatinine, Serum 0.88 mg/dL (0.55-1.02); EST Glomerular Filtration Rate 66 mL/min (>60); Est Glom Filt Rate - Afr Amer 80 mL/min (>60); Estimated Creatinine Clearance 51.71 ml/min; Glucose 100 mg/dL (74-106); Potassium 3.4 mmol/L (3.5-5.1); Sodium Level 145 mmol/L (136-145)
[2022-12-18 09:01] VITALS: BP 119/105; PULSE 101; RESP 20; TEMP 36.4; O2SAT 98
[2022-12-18 09:16] VITALS: PULSE 100
[2022-12-18] MEDS: Spironolactone 25 MG Tablet PO (09:16)
[2022-12-18] MEDS: APIXABAN 5 MG TABLET PO (09:16)
[2022-12-18] MEDS: Furosemide 40 MG Tablet PO (09:16)
[2022-12-18] MEDS: Metoprolol Tartrate 50 MG Tablet PO (09:16)
[2022-12-18] MEDS: SACUBITRIL/VALSARTAN 24/26 MG TABLET 1 EACH PO (09:16)
[2022-12-18] MEDS: Potassium Chloride Oral Tablet 20 MEQ 40 MEQ PO (11:16)
--- NOTE | 2022-12-18 13:50 | PCM.DC.SUM ---
Providers Date of Admission: 12/17/22 Date of Discharge: 12/18/22 Primary Care Physician: Dr. Asad Dimas MD Consultations 12/17/22 04:06 Consult: Cardiology Routine Consulting Provider: Marcelino Nickerson Reason for Consult: Atrial fibrillation RVR EMERGENT Consult: No MD Notified: Yes Date Notified: 12/17/22 Time Notified: 03:30 Method of Notification: Text Reason For Visit: ATRIAL FIBRILLATION WITH RAPID VETRICULAR RESPONSE Diagnosis Discharge Diagnosis (1) Atrial fibrillation with RVR: Status: Acute Code(s): I48.91 - Unspecified atrial fibrillation (2) CHF (congestive heart failure), NYHA class III: Status: Acute Code(s): I50.9 - Heart failure, unspecified Plan: HFREF Medications at Discharge Home Medications apixaban 5 mg tablet (Eliquis) 5 mg PO BID 12/16/22 metoprolol tartrate 50 mg tablet 50 mg PO BID #60 tabs 12/17/22 furosemide 40 mg tablet 40 mg PO BIDLX 30 days #60 tabs 12/18/22 sacubitril 24 mg-valsartan 26 mg tablet (Entresto) 1 tab PO BID 30 days #60 tabs 12/18/22 spironolactone 25 mg tablet 25 mg PO DAILY 30 days #30 tabs 12/18/22 Hospital Course Procedures Transthoracic echo Summary of Care Provided Minutes Spent on Discharge: 32 Hospital Course: 76-year-old female with a history of A-fib on Eliquis presented to [facility] 12/16 with shortness of breath and 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 Her chest x-ray was unremarkable but her BNP was above 500. In the ED her heart rate was irregularly irregular with a rate of 140 and she was started on Cardizem and admitted. Rate was controlled and she was transitioned to higher dose of oral metoprolol, cardiology consulted. EF newly reduced to 25% with moderate to severe global hypokinesis and she was started on IV Lasix. It was felt reduced EF secondary to her A-fib with RVR. She responded well and improved and was transitioned to oral Lasix and heart failure medications adjusted. On day of discharge she reported slight swelling in her lower extremity still but that she was feeling much better and would like to go home, discussed with cardiology and patient okay to discharge. Discharge instructions as followed: You are found to have decreased squeeze in your heart which may have been due to your fast heart rate -Please take metoprolol 50mg twice daily?to help with controlling your heart rhythm and rate, you will also be discharged on a medication,?Entresto, as well as spironolactone?for your heart -Would recommend?checking your heart rate and blood pressure daily?and?if your blood pressure is less than 100 would hold your Entresto and spironolactone and call your physician for further instructions.??If your heart rate is less than 50 bpm please hold your metoprolol and call your physician for further instructions -Additionally you will now need to take?40 mg of Lasix twice daily, once in the morning and once in the afternoon. -Would recommend lab work (BMP) to check your potassium and kidney function in 2 to 3 days?through your primary care physician's office.? Please call their office upon discharge to obtain order for lab work. -Please follow-up with cardiology upon discharge.? Please call their office to schedule hospital follow-up appointment upon discharge. -Weigh yourself every day. A sudden weight gain can mean you are retaining fluid. Weigh yourself at the same time of day and in the same kind of clothes. Ideally, weigh yourself first thing in the morning after you empty your bladder, but before you eat breakfast. -It is very likely that your dose of furosemide (Lasix) will be further adjusted in the future, advise close follow-up with your primary care physician for these adjustments and the lab work as above -Please call your physician if your weight goes up by more than 2 pounds in 1 day or 5 pounds in 1 week. This can be a sign that you are retaining more fluid than you should be. Clues to weight gain include checking your ankles for swelling, or noticing you are short of breath when you lie down -Please limit your sodium intake to less than 3 g/day. Here are tips: Limit canned, dried, packaged, and fast foods. Don't add salt to your food at the table. Season foods with herbs instead of salt when you cook. When you eat out, ask that the global climate change researcher not add any salt to your dish. Don't eat fried or greasy foods. Be careful of bottled beverages. They can contain a lot of salt -Call 911 right away if you have: -Severe shortness of breath, such that you can't catch your breath even while resting -Severe chest pain that does not resolve with rest or nitroglycerin -[place], foamy mucus with cough and shortness of breath -An ongoing rapid or irregular heartbeat -Passing out or fainting -Stroke symptoms such as sudden numbness or weakness on one side of your face, arm, or leg or sudden confusion, trouble speaking or vision changes Physical Exam Narrative General: Alert, oriented, no apparent distress HEENT: Atraumatic, normocephalic Eyes: Anicteric, normal conjunctiva, extraocular movements grossly intact Neck: Supple Respiratory: Clear to auscultation bilaterally, normal respiratory effort Cardiovascular: Irregularly irregular GI: Soft, nontender, nondistended Extremities: Slight bilateral lower extremity edema Musculoskeletal: Moving all extremities Neuro: No overt focal neurological deficits Skin: No rashes appreciated Psych: Cooperative Weight / BMI Weight Weight: 103.2 kg Body Mass Index (BMI) 36.7 ABG / Lab / Microbiology Data Result Diagrams: 12/16/22 23:10 12/18/22 06:15 Laboratory: Laboratory Results - last 24 hr 12/18/22 06:15: Sodium 145, Potassium 3.4 L, Chloride 110 H, Carbon Dioxide 26.0, Anion Gap 9, BUN 29 H, Creatinine 0.88, Estim Creat Clear Calc 51.71, Est GFR (MDRD) Af Amer 80, Est GFR (MDRD) Non-Af 66, BUN/Creatinine Ratio 32.8 H, Glucose 100, Calcium 8.3 L D/C Instructions Discharge Diet: - (DASH diet, 3000 mg sodium restriction, 2 L fluid restriction) Meaningful Use Info Meaningful Use Diagnoses (Choose all that apply): CHF CHF CHANDLER/ARB ordered at discharge?: Yes Documented LVEF (%): 25 Discharge Plan Admission Admit Date/Time: 12/17/22 03:27 Primary Reason for Your Visit: Shortness of breath Attending Provider: Coral Bellamy Primary Care Provider: Asad Dimas Consulting Providers: Marcelino Nickerson ; Bronson Flores ; Brodie Edwards Instructions Additional Instructions / Restrictions: DISCHARGE INSTRUCTIONS PLEASE READ *Please take this with you to your next doctors appointment* -You are found to have decreased squeeze in your heart which may have been due to your fast heart rate -Please take metoprolol 50mg twice daily to help with controlling your heart rhythm and rate, you will also be discharged on a medication, Entresto, as well as spironolactone for your heart -Would recommend checking your heart rate and blood pressure daily and if your blood pressure is less than 100 would hold your Entresto and spironolactone and call your physician for further instructions. If your heart rate is less than 50 bpm please hold your metoprolol and call your physician for further instructions -Additionally you will now need to take 40 mg of Lasix twice daily, once in the morning and once in the afternoon. -Would recommend lab work (BMP) to check your potassium and kidney function in 2 to 3 days through your primary care physician's office. Please call their office upon discharge to obtain order for lab work. -Please follow-up with cardiology upon discharge. Please call their office to schedule hospital follow-up appointment upon discharge. -Weigh yourself every day. A sudden weight gain can mean you are retaining fluid. Weigh yourself at the same time of day and in the same kind of clothes. Ideally, weigh yourself first thing in the morning after you empty your bladder, but before you eat breakfast. -It is very likely that your dose of furosemide (Lasix) will be further adjusted in the future, advise close follow-up with your primary care physician for these adjustments and the lab work as above -Please call your physician if your weight goes up by more than 2 pounds in 1 day or 5 pounds in 1 week. This can be a sign that you are retaining more fluid than you should be. Clues to weight gain include checking your ankles for swelling, or noticing you are short of breath when you lie down -Please limit your sodium intake to less than 3 g/day. Here are tips: Limit canned, dried, packaged, and fast foods. Don't add salt to your food at the table. Season foods with herbs instead of salt when you cook. When you eat out, ask that the global climate change researcher not add any salt to your dish. Don't eat fried or greasy foods. Be careful of bottled beverages. They can contain a lot of salt -Call 911 right away if you have: -Severe shortness of breath, such that you can't catch your breath even while resting -Severe chest pain that does not resolve with rest or nitroglycerin -[place], foamy mucus with cough and shortness of breath -An ongoing rapid or irregular heartbeat -Passing out or fainting -Stroke symptoms such as sudden numbness or weakness on one side of your face, arm, or leg or sudden confusion, trouble speaking or vision changes -Please call your primary care provider's office upon discharge to schedule a hospital follow up within 1 week. -For any concerning signs or symptoms please call 911 or proceed to the nearest emergency department Discharge Orders/Prescriptions Prescriptions: New metoprolol tartrate 50 mg tablet 50 mg PO BID Qty: 60 0RF furosemide 40 mg Tablet 40 mg PO BIDLX 30 Days Qty: 60 0RF Entresto 24-26 mg Tablet 1 tab PO BID 30 Days Qty: 60 0RF spironolactone 25 mg Tablet 25 mg PO DAILY 30 Days Qty: 30 0RF Continued Eliquis 5 mg Tablet 5 mg PO BID Discontinued metoprolol succinate 25 mg Tablet Extended Release 24 Hr 25 mg PO DAILY Referrals / Follow Up: Marcelino Nickerson MD [Med Staff - Active Staff] - See Referral Note (Please follow-up with cardiology upon discharge. Please call their office to schedule hospital follow-up appointment upon discharge.) Asad Dimas MD [Primary Care Provider] - Within 1 Week Disposition Disposition (needs filled in before D/C Order can be placed): Home, Self Care Charges/Coding Visit Charges Inpatient E&M: 35839 Disch Hosp >30min
--- NOTE | 2022-12-18 14:05 | CASEMGMT ---
LEIGHTON VELAZQUEZ called retail pharmacy to inquire about cost of Entresto, $47. LEIGHTON VEALZQUEZ in to patient's room to discuss discharge needs. RN MARCUS updated patient regarding cost of Entresto. Patient states she can afford it. Patient denied further needs and concerns at this time.
--- NOTE | 2022-12-18 14:40 | PHA.DC.MC ---
Pharmacy Service has performed discharge medication reconciliation and counseling for this patient. 1. FUROSEMIDE 40MG PO BIDLX 2. METOPROLOL TARTRATE 50MG PO BID 3. SACUBITIRIL/VALSARTAN 24/26MG 1T PO BID 4. SPIRONOLACTONE 25MG PO DAILY The patient's discharge medication list was reviewed for discrepancies and discrepancies were resolved. Home Medications apixaban 5 mg tablet (Eliquis) 5 mg PO BID 12/16/22 metoprolol tartrate 50 mg tablet 50 mg PO BID #60 tabs 12/17/22 furosemide 40 mg tablet 40 mg PO BIDLX 30 days #60 tabs 12/18/22 sacubitril 24 mg-valsartan 26 mg tablet (Entresto) 1 tab PO BID 30 days #60 tabs 12/18/22 spironolactone 25 mg tablet 25 mg PO DAILY 30 days #30 tabs 12/18/22 The patient was counseled on the following discharge medications and changes in medications for homegoing were reviewed. The Reason for Use, instructions for use, and potential side effects were reviewed for all new medications. The patient's questions regarding all of their medications were answered. The patient was able to verbally demonstrate an understanding of their discharge medications.
[2022-12-18 14:41] VITALS: BP 119/88; PULSE 101; RESP 20; TEMP 36.2; O2SAT 93
== END 2022-12-18 15:00 | disposition home or self-care (01) | DRG 308 ==
LOC: ED 12-17 01:48 → PCU 12-17 03:41
PROVIDERS: Internal Medicine Cardiovascular Disease; Admitting Provider Family Medicine; Emergency Provider Student in an Organized Health Care Education/Training Program; PCP Family Medicine; Visit Provider Internal Medicine
DX: I48.91 Unspecified atrial fibrillation (principal); I50.21 Acute systolic (congestive) heart failure; I11.0 Hypertensive heart disease with heart failure; Z79.01 Long term (current) use of anticoagulants; Z79.899 Other long term (current) drug therapy; R94.31 Abnormal electrocardiogram [ECG] [EKG]; I08.1 Rheumatic disorders of both mitral and tricuspid valves
CPT/HCPCS: 36415; 71045; 80048; 80061; 80076; 83880; 84443; 84484; 85025; 93005; 93306; 96365; 96366; 96375; 96376; 99221; 99285; J7030; Q9957; A4216; C8929; G0378; J1940

== ENCOUNTER 2023-01-25 09:11 | Emergency (ER) | payer MEDICARE, SELFPAY ==
[2023-01-25 09:12] VITALS: BP 134/43; PULSE 152; RESP 18; TEMP 35.8; O2SAT 98
--- NOTE | 2023-01-25 09:22 | EKG12_ITS ---
Test Reason : N/V Blood Pressure : / mmHG Vent. Rate : 110 BPM Atrial Rate : 000 BPM P-R Int : 000 ms QRS Dur : 080 ms QT Int : 348 ms P-R-T Axes : 000 -05 010 degrees QTc Int : 470 ms Atrial fibrillation with rapid ventricular response Cannot rule out Inferior infarct , age undetermined Abnormal ECG Confirmed by SHRUTI CLARKE, VANITA ([id number]), associate editor ROYCE BOWENS ([id number]) on 01/27/2023 12:35:02 PM Referred By: KATIE Confirmed By:VANITA BAHENA MD
--- NOTE | 2023-01-25 09:24 | EX.ED.DYSGE1 ---
HPI History of Present Illness Chief Complaint: Nausea/Vomiting Detail of Chief Complaint: Vomiting Informant: patient Narrative Narrative: Patient presents to the emergency department complaint of vomiting that started half an hour ago. Patient apparently vomited x2. She became very sweaty and diaphoretic. EMS was called. Patient is with her son. She seemed her normal self last evening. Patient denies any sick contacts. She denies eating any undercooked foods. She denies abdominal pain. She denies chest pain. Patient diagnosed with A-fib a few months ago. Patient denies urinary symptoms. Patient denies diarrhea. [facility] Medical History (Updated 01/25/23 @ 11:[address] Blaise Henning DO) Atrial fibrillation with RVR CHF (congestive heart failure), NYHA class III HTN (hypertension), benign Home Medications apixaban 5 mg tablet (Eliquis) 5 mg PO BID #180 tabs 01/22/23 [Rx Last Taken Unknown] furosemide 40 mg tablet 40 mg PO BID #180 tabs 01/22/23 [Rx Last Taken Unknown] metoprolol tartrate 50 mg tablet 50 mg PO BID #180 tabs 01/22/23 [Rx Last Taken Unknown] sacubitril 24 mg-valsartan 26 mg tablet (Entresto) 1 tab PO BID #180 tabs 01/22/23 [Rx Last Taken Unknown] spironolactone 25 mg tablet 25 mg PO DAILY #90 tabs 01/22/23 [Rx Last Taken Unknown] ondansetron 4 mg disintegrating tablet 4 mg PO Q8H PRN PRN Nausea #10 tabs 01/25/23 [Rx Last Taken Unknown] Allergy/AdvReac Type Severity Reaction Status Date / Time No Known Allergies Allergy Verified 11/09/16 21:20 Surgical History Status post right foot surgery Social History Smoking Status: Never smoker ROS ROS ED Review of Systems ROS Unobtainable: other Constitutional Constitutional ED: Reports lethargy; Denies chills, fever(s), sweats or weight loss Eyes Eyes: Denies blurry vision, change in vision or diplopia ENT ENT ED: Denies rhinorrhea or sore throat Cardiovascular Cardiovascular: Denies chest pain, orthopnea or racing heartbeat Respiratory/Chest Respiratory/Chest: Denies cough, dyspnea, dyspnea on exertion, orthopnea or sputum Gastrointestinal Gastrointestinal: Reports nausea and vomiting; Denies abdominal pain or diarrhea Genitourinary Genitourinary ED: Denies dysuria, hematuria or urinary frequency Musculoskeletal Musculoskeletal: Denies arthralgias, back pain, myalgias or neck pain Integumentary Denies abscess, Abrasions or rash Neurologic Neurologic: Denies headache(s) or weakness Psychiatric Psychiatric: Denies anxiety, depression or suicidal thoughts Endocrine Endocrinology: Denies polydipsia, polyphagia or polyuria Hematologic/Lymphatic Hematologic/Lymphatic: Denies easy bleeding, easy bruising or lymphadenopathy Allergic/Immunologic Allergic/Immunologic ED: Denies mouth swelling, tongue swelling or urticaria EXAM Physical Exam Const Vital Signs: 01/25/23 09:12 01/25/23 11:14 01/25/23 12:20 Temperature 96.5 F L Temperature Source Temporal Pulse Rate 152 H 107 H 109 H Respiratory Rate 18 18 18 Blood Pressure 134/43 H 100/82 H 109/93 H Blood Pressure Mean 73 88 Pulse Ox 98 96 96 Oxygen Delivery Method Room Air Room Air Positive well nourished and well developed General Appearance ED: well developed and NAD HEENT Reports TM's clear and moist mucous membranes normocephalic and atraumatic; Negative for trauma or tenderness Tympanic Membrane ED: Yes TM's clear Eyes PERRL and EOMs intact bilaterally General Eye ED: Negative for pale conjunctiva or scleral icterus Neck no lymphadenopathy, supple and no JVD General: Negative for tenderness Chest Wall inspection of chest normal and palpation of chest normal Chest: Negative for tenderness Resp normal respiratory effort and clear to auscultation bilaterally Effort and Inspection: Negative for respiratory distress or pain with movement Auscultation: Negative for rhonchi, wheezes or diminished lung sounds Cardio regular rate, regular rhythm, S1 normal heart sound, S2 normal heart sound and no murmurs Peripheral Pulses: pulses 2+ throughout GI normal to inspection, nondistended, normoactive bowel sounds, soft to palpation, non-tender, non-distended and no masses Back/Spine no CVA tenderness and no thoracic nor lumbar tenderness Extremity normal to inspection General Extremety ED: Negative for edema General Extremity: Negative for edema Neuro oriented x3, CN's II-XII intact bilaterally, no sensory deficits noted and gait normal Sensorium / Orientation: awake, alert, oriented to person, oriented to place and oriented to time Motor Exam: strength 5/5 throughout and strength abnormal Psych mental status grossly normal Skin no rashes or lesions noted and no wounds MDM MDM MDM Narrative Medical decision making narrative: Patient presents with nausea and vomiting and diaphoresis of rather sudden onset. She denies any chest pain. In the differential would be vasovagal episode versus gastroenteritis versus acute coronary syndrome although she is not having chest pain I feel this is less likely. IV line established. Patient was given a liter normal same fluid bolus and given Zofran 4 mg IV. EKG obtained showed atrial fibrillation with a ventricular rate of 110 bpm with no acute ST segment changes. CBC with differential showed a white count of 11.8 with hemoglobin of 14.5 and platelet count of 220. Chemistries unremarkable. Troponin was normal at 7. Delta troponin 2 hours later was also 7. LFTs and lipase normal. Urinalysis unremarkable. I did send off a urine culture. After treatment patient felt markedly improved. She was ambulated and felt well. At this point she will be discharged to home. Etiology of her nausea and vomiting unclear. Patient advised to follow-up with her primary care physician 3 to 5 days. She is given a prescription for Zofran. Patient also states that she had taken her morning medications and is wondering if some of the symptoms were triggered by her medications which is within the realm of possibility. Lab Data Attestation: I reviewed the patient's lab results. Labs: Laboratory Results - last 24 hr 01/25/23 01/25/23 01/25/23 09:38 10:40 10:53 WBC 11.8 H RBC 5.01 Hgb 14.5 Hct 45.9 MCV 91.6 MCH 28.9 MCHC 31.6 L RDW Std Deviation 49.1 H RDW Coeff of [place] 14.6 Plt Count 220 MPV 12.1 H Immature Gran % (Auto) 0.400 Neut % (Auto) 82.8 H Lymph % (Auto) 9.9 L [place] % (Auto) 5.8 Eos % (Auto) 0.8 Baso % (Auto) 0.3 Absolute Neuts (auto) 9.7 H Absolute Lymphs (auto) 1.17 Nucleated RBC % 0 Sodium 140 Potassium 3.7 Chloride 111 H Carbon Dioxide 20.0 L Anion Gap 9 BUN 34 H Creatinine 1.15 H Estim Creat Clear Calc 38.96 Est GFR (MDRD) Af Amer 59 L Est GFR (MDRD) Non-Af 49 L BUN/Creatinine Ratio 29.6 H Glucose 147 H Calcium 8.5 Total Bilirubin 0.90 AST 27 ALT 46 Alkaline Phosphatase 84 Troponin I High Sens 7 7 Total Protein 6.9 Albumin 2.9 L Globulin 4.0 Albumin/Globulin Ratio 0.7 L Lipase 44 Urine Color Yellow Urine Clarity Clear Urine pH 6.0 Ur Specific [place] 1.010 Urine Protein 100 H Urine Glucose (UA) Normal Urine Ketones 5 H Urine Occult Blood 10 H Urine Nitrite Negative Urine Bilirubin Negative Urine Urobilinogen Normal Ur Leukocyte Esterase 500 H Urine RBC 0 SEEN Urine WBC 0-5 SEEN Ur Squamous Epith Cells 0-5 SEEN Urine Bacteria 1+ Urine Mucus 0 SEEN EKG Initial EKG: Comments: Atrial fibrillation with a rate of 110 bpm with no acute ST segment changes Discharge Plan Triage Chief Complaint: Nausea/Vomiting ED Provider: Blaise Henning Dx/Rx/DC Orders Clinical Impression: Vomiting Instructions: ED Vomiting (Adult) Prescriptions: New ondansetron [ondansetron] 4 mg tablet,disintegrating 4 mg PO Q8H PRN PRN (Reason: Nausea) Qty: 10 0RF No Action Eliquis 5 mg tablet 5 mg PO BID Qty: 180 3RF furosemide 40 mg tablet 40 mg PO BID Qty: 180 3RF metoprolol tartrate 50 mg tablet 50 mg PO BID Qty: 180 3RF Entresto 24-26 mg tablet 1 tab PO BID Qty: 180 3RF spironolactone 25 mg tablet 25 mg PO DAILY Qty: 90 3RF Primary Care Provider: Asad Dimas Referrals: Asad Dimas MD [Primary Care Provider] - 3-5 Days Disposition Disposition: Home, Self Care Discharge Date/Time: 01/25/23 12:21
[2023-01-25] MEDS: 0.9% Normal Saline 1,000 ML 125 ML IV (09:35)
[2023-01-25] MEDS: Ondansetron 4 MG/2 ML Vial IV (09:36)
[2023-01-25 09:40] VITALS: BMI 33.8
[2023-01-25 09:47] LABS: Absolute Lymphocyte Count 1.17 X10^3/uL (0.83-4.51); Absolute Neutrophil Count 9.7 X10^3/uL (2.0-7.7); Basophil# 0.04 X10^3/uL; Basophil% 0.3 % (0-1); Eosinophils% 0.8 % (0-5); Hematocrit 45.9 % (37-47); Hemoglobin 14.5 g/dL (12.0-15.0); Lymphocyte # 1.17 X10^3/ul (0.83-4.51); Lymphocyte % 9.9 % (19-41); Mean Corp Hgb Conc 31.6 g/dL (32-36); Mean Corpuscular Hgb 28.9 pg (27.0-32.0); Mean Corpuscular Volume 91.6 fL (81-99); Mean Platelet Vol. 12.1 fl (6.2-12.0); Monocyte# 0.68 X10^3/uL; Monocyte% 5.8 % (0-10); NRBC Flagged by Analyzer 0 % (0-5); Neutrophil # 9.74 X10^3/uL (2.7-7.7); Neutrophil % 82.8 % (47-70); Platelet Count 220 K/mm3 (150-450); RBC Distribution Width CV 14.6 % (11.6-14.6); RBC Distribution Width SD 49.1 fl (35.1-43.9); Red Blood Count 5.01 M/mm3 (4.2-5.4); White Blood Count 11.8 K/mm3 (4.4-11.0)
[2023-01-25 10:05] LABS: ALB/GLOB Ratio 0.7 RATIO (0.9-2.4); AST(SGOT) 27 U/L (15-37); Alanine Aminotransfer ALT/SGPT 46 U/L (13-56); Albumin, Serum 2.9 g/dL (3.2-5.0); Alkaline Phosphatase 84 U/L (45-117); Anion Gap 9 (5-15); BUN 34 mg/dL (7-18); BUN/Creat Ratio 29.6 RATIO (10-20); Calcium,Total 8.5 mg/dL (8.5-10.1); Chloride 111 mmol/L (98-107); Creatinine, Serum 1.15 mg/dL (0.55-1.02); EST Glomerular Filtration Rate 49 mL/min (>60); Est Glom Filt Rate - Afr Amer 59 mL/min (>60); Estimated Creatinine Clearance 38.96 ml/min; Glucose 147 mg/dL (74-106); Lipase 44 U/L (13-75); Potassium 3.7 mmol/L (3.5-5.1); Protein, Total 6.9 g/dL (6.4-8.2); Sodium Level 140 mmol/L (136-145); Troponin-I HS 7 pg/mL (3.0-54.0)
[2023-01-25 10:45] LABS: Mucous, Urine 0 SEEN /hpf (<or=2+); Red Blood Cells-Urine 0 SEEN /hpf (0-5)
[2023-01-25 11:09] LABS: Color, Urine Yellow (Yellow); Glucose, Dipstick Normal (Normal); Ketone-Dipstick 5 mg/dl (Negative); Leukocyte Esterase-Dipstick 500 /ul (Negative); Nitrite-Dipstick Negative (Negative); Occult Blood-Urine 10 /ul (Negative); Protein-Dipstick 100 mg/dl (Negative); Urine Bilirubin Dipstick Negative (Negative); Urine Clarity Clear (Clear); Urine Urobilinogen Normal (Normal)
[2023-01-25 11:14] VITALS: BP 100/82; PULSE 107; RESP 18; O2SAT 96
[2023-01-25 11:19] LABS: Troponin-I HS 7 pg/mL (3.0-54.0)
[2023-01-25 11:31] LABS: Bacteria 1+ /hpf (None Seen); Squamous Epithelial Cells - UA 0-5 SEEN /hpf (5-10); White Blood Cells 0-5 SEEN /hpf (0-5)
[2023-01-25 12:20] VITALS: BP 109/93; PULSE 109; RESP 18; O2SAT 96
== END 2023-01-25 12:21 | disposition home or self-care (01) ==
PROVIDERS: Emergency Provider Emergency Medicine; PCP Family Medicine; Visit Provider Emergency Medicine
DX: R11.2 Nausea with vomiting, unspecified (principal); I50.9 Heart failure, unspecified
CPT/HCPCS: 80053; 81001; 83690; 84484; 85025; 87086; 87088; 93005; 96361; 96374; 99283; J7030; A4216; J2405

== ENCOUNTER 2023-02-05 11:05 | Day surgery (SDC) | payer MEDICARE, SELFPAY ==
[2023-02-04 09:13] VITALS: BMI 33.5
--- NOTE | 2023-02-05 12:35 | PCM.OP.PRO ---
Procedure Report Date of Procedure: 02/05/23 DC cardioversion. 77-year-old lady with a history of atrial fibrillation and a cardiomyopathy. Patient was brought to cardiac catheterization lab in the postabsorptive nonsedated state. Patient was seen by Dr. Raman of the critical care division. Informed consent was obtained. The patient was administered 4 mg of intravenous etomidate. Anterior-posterior pads were applied. 200 J of synchronized DC cardioversion energy were applied with prompt reversal to sinus rhythm. Patient tolerated the procedure well. Conclusion: Successful DC cardioversion from atrial fibrillation to sinus rhythm. Follow-up as per office protocol.
--- NOTE | 2023-02-05 13:06 | PCM.OP.PRO ---
Procedure Report Date of Procedure: 02/05/23 CONSCIOUS SEDATION REPORT DATE OF SERVICE: February 05, 2023 BRIEF HISTORY OF PRESENT ILLNESS: The patient is a 77-year-old female who presented to [facility] for an elective outpatient cardioversion due to underlying atrial fibrillation. The patient has never previously undergone a cardioversion. She denied any prior anesthetic complications. She has no pre-existing lung conditions. The patient is systemically anticoagulated on Eliquis. Her last surface echocardiogram demonstrated an ejection fraction of approximately 25%. PHYSICAL EXAMINATION: VITAL SIGNS: Reviewed and were acceptable. GENERAL: The patient is a female, in no apparent distress, speaking in full sentences. HEENT: Normocephalic, atraumatic. Mucous membranes are moist and pink. Good mouth opening noted. Trachea is midline. Good neck mobility. CHEST: S1, S2 irregularly irregular. No murmurs, rubs or gallops were noted. LUNGS: Clear to auscultation bilaterally without appreciable wheezes, rales or rhonchi. ABDOMEN: Soft, nontender, nondistended. Positive bowel sounds. EXTREMITIES: There is no clubbing, cyanosis or edema. ASA Class: II DESCRIPTION OF PROCEDURE: After confirmation of informed consent, the patient's anesthesia plan was reviewed in detail. Etomidate was chosen. Risks and benefits were reviewed and the patient agreed to proceed. At 1225, the patient was given 4 mg of etomidate. The patient achieved an appropriate level of sedation and was given a 200 joule synchronized cardioversion by Dr. Nickerson at the bedside. This was successful in achieving normal sinus rhythm. The patient was monitored until 1237, at which time she reached her baseline mental status and function. The patient tolerated the procedure well. COMPLICATIONS: None ESTIMATED BLOOD LOSS: None RECOMMENDATIONS: Okay to recover in usual fashion. Procedures Pulmonary 9xxxx: [id number] Con Sedation
== END 2023-02-05 13:30 | disposition home or self-care (01) ==
PROVIDERS: PCP Family Medicine; Referring Provider Internal Medicine Cardiovascular Disease; Visit Provider Internal Medicine Cardiovascular Disease
DX: I48.91 Unspecified atrial fibrillation (principal); I11.0 Hypertensive heart disease with heart failure; I50.21 Acute systolic (congestive) heart failure; Z79.01 Long term (current) use of anticoagulants; Z79.899 Other long term (current) drug therapy
CPT/HCPCS: 92960; 93005

== ENCOUNTER 2023-04-01 06:32 | Outpatient (CLI) | payer MEDICARE, SELFPAY ==
--- NOTE | 2023-04-01 13:05 | STRESSREP ---
Stress Test Report Pharmacologic myocardial perfusion stress test. 77-year-old lady with a history of a cardiomyopathy and atrial fibrillation Resting EKG demonstrates atrial fibrillation with a rate of 117 bpm. Resting blood pressure is 106/78 mmHg. 0.4 mg of regadenoson was infused per usual protocol followed by rapid intravenous saline flush injection. Continuous EKG monitoring was performed. The maximum heart rate was 146 bpm which was 101% of max impacted heart rate the maximum workload was 1 metabolic equivalent. At rest there were no ST or T wave changes noted to suggest ischemia and at peak infusion nonspecific ST changes were noted which did not meet the criteria for ischemia. No clinical angina is noted. The final blood pressure was 98/60 mmHg. Myocardial perfusion protocol. 11.9 mCi of technetium 99m sestamibi was injected at rest. 0.4 mg of regadenoson was infused per usual protocol. At peak infusion 37.0 mCi of technetium 99m sestamibi was injected stress images were obtained stress and rest images were reconstructed and compared in the short axis vertical long and horizontal long axis. Perfusion SPECT analysis: Review of the stress images demonstrate normal uptake of tracer noted in all areas of the myocardium. The resting images similar demonstrated normal uptake of tracer noted in all areas of the myocardium. No areas of reversibility are noted to suggest ischemia and no previous infarct is noted. Conclusion: Normal pharmacologic myocardial perfusion stress test. Atrial fibrillation present.
== END 2023-04-01 23:59 | disposition home or self-care (01) ==
PROVIDERS: PCP Family Medicine; Referring Provider Physician Assistant Medical; Visit Provider Physician Assistant Medical
DX: I50.21 Acute systolic (congestive) heart failure (principal); I42.9 Cardiomyopathy, unspecified; I48.91 Unspecified atrial fibrillation
CPT/HCPCS: 78452; 93017; A9500; A4216; J2785

== ENCOUNTER 2023-04-29 10:28 | Day surgery (SDC) | payer MEDICARE, SELFPAY ==
--- NOTE | 2023-04-23 09:51 | HP.PCM_ITS ---
History and Physical Date of Admission: 04/29/23 Katherine Persaud is a 77-year-old female who presents to the cardiac blood bank laboratory professional for a cardioversion. Patient was admitted to [facility] on 12/16/2022 with increased shortness of breath. She was noted to be in atrial fibrillation with RVR. Echocardiogram demonstrated a decreased ejection fraction of 25% with moderate to severe global hypokinesis. It was felt that her reduced ejection fraction was likely related to her RVR. She was discharged home on metoprolol, Entresto, spironolactone, furosemide and Eliquis. She did undergo a cardioversion, this was unsuccessful. Pt feels that her breathing is back to baseline. She is not active. She does ambulate with a cane. She can sometimes feel a skipped beat. She does not have any chest pain/heaviness/tightness. She does not have any lightheadedness/dizziness. She does not have any edema. Intake Vital Signs See EMR Allergies See EMR Medications See EMR [facility] Medical History Atrial fibrillation with RVR Cardiomyopathy CHF (congestive heart failure), NYHA class III HTN (hypertension), benign Surgical History Status post right foot surgery Social History Smoking Status: Never smoker ROS Const Const: Positive for weakness; Negative for fatigue, headache(s), frequent falls, excessive sweating, weight gain or weight loss Eyes Eyes: Negative for blind spots, loss of peripheral vision, transient loss of vision, blurry vision, change in vision or double vision ENT ENT: Positive for balance problems; Negative for headache(s), dizziness, tinnitus or Nosebleed/epistaxis Cardio Chest Pain: No Palpitations: Yes Edema: None Muscle aches with walking: None Resp Respiratory: Negative for SOB with activity, SOB at rest, SOB orthopnea\SOB lying down or Cough GI GI: Negative nausea, vomiting, heartburn, bloating, vomiting blood/hematemesis, bright, red blood in stools or black,tarry stools : Negative for hematuria Musc Musc: Positive for muscle aches/ myalgia, muscle weakness and balance problems; Negative for joint pain Skin Skin: Negative rash or wounds Neuro Neuro: Positive for weakness; Negative for dizziness, lightheadedness, near syncope, syncope, orthostatic symptoms, frequent falls, headache(s), confusion, memory loss, restless legs, blurry vision or double vision [place] Hematologic/Lymphatic: Negative for easy bleeding or easy bruising Endo Endo: Negative for fatigue, cold intolerance, heat intolerance or excessive sweating Psych Psych: Negative for anxiety or depression Allergy Allergy/Immunology: Negative for rash Cardiology Exam Const Appearance: cooperative, healthy appearing, comfortable, no acute distress and well developed Orientation: alert, awake and oriented x3 Head Head: normal to inspection Ears: hearing grossly normal bilaterally Nose: external nose normal Face and Sinus: face symmetric Mouth: oral mucosae normal, lip normal and moist mucous membranes Eyes General: appearance normal, both eyes and all related structures Eyelids: eyelids normal Conjunctivae: conjunctivae normal Pupils: PERRL EOM: EOM intact bilaterally Neck Neck: normal visual inspection and trachea midline; Negative no JVD Carotids: Negative bruit Chest Chest inspection: normal inspection of the chest Auscultation: Bilateral: Clear to Auscultation Cardio Palpation: normal PMI Rate: tachycardic Rhythm: irregularly irregular Heart sounds: S1 normal and S2 normal; Negative rub, gallop or murmur GI GI: soft, no hepatosplenomegaly and bowel sounds present Neuro General: patient alert, patient awake, patient oriented x3 and CN's II-XI intact bilaterally Extremities Pulses: Normal: Right Posterior Tibial Pulse, Left Posterior Tibial Pulse, Right Radial Pulse and Left Radial Pulse Lower Extremity Edema: +1: Bilateral Psych Psychological: normal affect Supplemental Info Supplemental Information Echocardiogram 11/2022: Normal LV size. The estimated ejection fraction is 25 %. There is moderate to severe global hypokinesis of the left ventricle. Moderate (2+) posteriorly directed mitral valve insufficiency. Pulmonary artery systolic pressure is 48 mmHg. Contrast injection was performed. Stress test 04/01/2023: Pharmacologic myocardial perfusion stress test. 77-year-old lady with a history of a cardiomyopathy and atrial fibrillation Resting EKG demonstrates atrial fibrillation with a rate of 117 bpm. Resting blood pressure is 106/78 mmHg. 0.4 mg of regadenoson was infused per usual protocol followed by rapid intravenous saline flush injection. Continuous EKG monitoring was performed. The maximum heart rate was 146 bpm which was 101% of max impacted heart rate the maximum workload was 1 metabolic equivalent. At rest there were no ST or T wave changes noted to suggest ischemia and at peak infusion nonspecific ST changes were noted which did not meet the criteria for ischemia. No clinical angina is noted. The final blood pressure was 98/60 mmHg. Myocardial perfusion protocol. 11.9 mCi of technetium 99m sestamibi was injected at rest. 0.4 mg of regadenoson was infused per usual protocol. At peak infusion 37.0 mCi of technetium 99m sestamibi was injected stress images were obtained stress and rest images were reconstructed and compared in the short axis vertical long and horizontal long axis. Perfusion SPECT analysis: Review of the stress images demonstrate normal uptake of tracer noted in all areas of the myocardium. The resting images similar demonstrated normal uptake of tracer noted in all areas of the myocardium. No areas of reversibility are noted to suggest ischemia and no previous infarct is noted. Conclusion: Normal pharmacologic myocardial perfusion stress test. Atrial fibrillation present. Assessment and Plan Assessment and Plan (1) Atrial fibrillation with RVR: Status: Acute Plan: Unfortunately patient has not maintained sinus rhythm. Her stress test on 04/01/2023 was negative for ischemia. Her echocardiogram from 11/2022 demonstrated an ejection fraction of 25%. She was placed on Amiodarone 200mg daily, and has continued metoprolol tartrate 50mg twice daily, and apixaban 5mg twice daily. With her new onset of atrial fibrillation and cardiomyopathy would like to proceed with a cardioversion.
[2023-04-29 10:42] LABS: Hematocrit 46.8 % (37-47); Hemoglobin 14.6 g/dL (12.0-15.0); Mean Corp Hgb Conc 31.2 g/dL (32-36); Mean Corpuscular Hgb 29.9 pg (27.0-32.0); Mean Corpuscular Volume 95.9 fL (81-99); Mean Platelet Vol. 10.8 fl (6.2-12.0); Platelet Count 268 K/mm3 (150-450); RBC Distribution Width CV 13.6 % (11.6-14.6); RBC Distribution Width SD 48.4 fl (35.1-43.9); Red Blood Count 4.88 M/mm3 (4.2-5.4); White Blood Count 7.5 K/mm3 (4.4-11.0)
[2023-04-29 10:48] VITALS: BMI 31.6
[2023-04-29 10:56] LABS: Anion Gap 3 (5-15); BUN 30 mg/dL (7-18); BUN/Creat Ratio 23.3 RATIO (10-20); Calcium,Total 8.6 mg/dL (8.5-10.1); Chloride 109 mmol/L (98-107); Creatinine, Serum 1.29 mg/dL (0.55-1.02); EST Glomerular Filtration Rate 43 mL/min (>60); Est Glom Filt Rate - Afr Amer 52 mL/min (>60); Estimated Creatinine Clearance 34.73 ml/min; Glucose 112 mg/dL (74-106); Potassium 4.5 mmol/L (3.5-5.1); Sodium Level 140 mmol/L (136-145)
--- NOTE | 2023-04-29 12:08 | PRO.PCM_ITS ---
Procedure Report Date of Procedure: 04/29/23 DC cardioversion. 77-year-old lady with a history of nonischemic cardiomyopathy and atrial fi brillation symptomatic who has been on anticoagulation and antiarrhythmic therapy for minimum of 3 weeks. Patient presented for elective DC cardioversion. The patient was seen by Dr. Raman of the critical care division. Informed consent was obtained. Anterior-posterior pads were applied. The patient was administered 4 mg of intravenous etomidate and then 200 J of biphasic DC cardioversion energy were applied with prompt reversal to sinus rhythm. Patient tolerated the procedure well. Conclusion: Successful DC cardioversion from atrial fibrillation to sinus rhythm. Continue current medical therapy as per protocol.
--- NOTE | 2023-04-29 12:15 | PRO.PCM_ITS ---
Procedure Report Date of Procedure: 04/29/23 CONSCIOUS SEDATION REPORT DATE OF SERVICE: April 29, 2023 BRIEF HISTORY OF PRESENT ILLNESS: The patient is a 77-year-old female who presented to [facility] for an elective outpatient cardioversion due to underlying atrial fibrillation. The patient did undergo a prior cardioversion in January 2023, during which time, 4 mg of etomidate was utilized to achieve an appropriate level of sedation. The patient denied any prior anesthetic complications. She has no pre-existing lung conditions. Her last surface echocardiogram demonstrated an ejection fraction of 25%. She remains systemically anticoagulated on Eliquis. PHYSICAL EXAMINATION: VITAL SIGNS: Reviewed and were acceptable. GENERAL: The patient is a female, in no apparent distress, speaking in full sentences. HEENT: Normocephalic, atraumatic. Mucous membranes are moist and pink. Good mouth opening noted. Trachea is midline. Good neck mobility. CHEST: S1, S2 irregularly irregular. No murmurs, rubs or gallops were noted. LUNGS: Clear to auscultation bilaterally without appreciable wheezes, rales or rhonchi. ABDOMEN: Soft, nontender, nondistended. Positive bowel sounds. EXTREMITIES: There is no clubbing, cyanosis or edema. ASA Class: II DESCRIPTION OF PROCEDURE: After confirmation of informed consent, the patient's anesthesia plan was reviewed in detail. Etomidate was chosen. Risks and benefits were reviewed and the patient agreed to proceed. At 1202, the patient was given 4 mg of etomidate. The patient achieved an appropriate level of sedation and was given a 200 joule synchronized cardioversion by Dr. Nickerson at the bedside. This was successful in achieving normal sinus rhythm. The patient was monitored until 1215, at which time she reached her baseline mental status and function. The patient tolerated the procedure well. COMPLICATIONS: None ESTIMATED BLOOD LOSS: None RECOMMENDATIONS: Okay to recover in usual fashion. Procedures Pulmonary 9xxxx: [id number] Con Sedation
== END 2023-04-29 13:05 | disposition home or self-care (01) ==
PROVIDERS: PCP Family Medicine; Referring Provider Internal Medicine Cardiovascular Disease; Visit Provider Internal Medicine Cardiovascular Disease
DX: I48.91 Unspecified atrial fibrillation (principal); I11.0 Hypertensive heart disease with heart failure; I50.9 Heart failure, unspecified; I42.8 Other cardiomyopathies; Z79.899 Other long term (current) drug therapy; Z79.01 Long term (current) use of anticoagulants
CPT/HCPCS: 36415; 80048; 85027; 92960; 93005; J7040

== ENCOUNTER → 2023-05-06 | Outpatient (CLI) | payer MEDICARE, SELFPAY ==
[2023-05-06 14:44] LABS: BNP,B-Type NATRIURETIC PEPTIDE 251.2 pg/mL (0-100)
== END | disposition home or self-care (01) ==
LOC: LAB 13:55
PROVIDERS: PCP Family Medicine; Referring Provider Internal Medicine Cardiovascular Disease; Visit Provider Internal Medicine Cardiovascular Disease
DX: I50.21 Acute systolic (congestive) heart failure (principal); I42.9 Cardiomyopathy, unspecified; I48.91 Unspecified atrial fibrillation
CPT/HCPCS: 36415; 83880

== ENCOUNTER → 2023-08-07 | Outpatient (CLI) | payer MEDICARE, SELFPAY ==
--- NOTE | 2023-08-07 13:57 | ECHOL_ITS ---
Reason For Study: CARDIOMYOPATHY Procedure This was a limited 2D transthoracic echocardiogram. Exam performed in department. Left Ventricle Normal LV size. The estimated ejection fraction is 40 %. There is mild to moderate global hypokinesis of the left ventricle. Right Ventricle Normal RV size. Normal systolic function. Atria Normal left atrium. Normal right atrium. Mitral Valve Normal mitral valve. Mild (1+) mitral valve insufficiency. Tricuspid Valve Normal tricuspid valve. Mild tricuspid valve insufficiency. Pulmonary artery systolic pressure is 33 mmHg. Aortic Valve Normal aortic valve. Trisinus/trileaflet aortic valve. Pulmonic Valve Normal pulmonic valve. Great Vessels Normal aortic root. The pulmonary artery is normal size. Normal inferior vena cava. Pericardium/Pleural No pericardial effusion. MMode/2D Measurements & Calculations LVIDd: 4.8 cm IVSd: 0.98 cm LVAd ap4: 29.8 cm2 LVIDs: 4.0 cm LVPWd: 1.0 cm LVLd ap4: 7.3 cm FS: 16.0 % EDV(MOD-sp4): 97.8 ml EDV(sp4-el): 103.7 ml LVAs ap4: 22.0 cm2 LVLs ap4: 6.4 cm ESV(MOD-sp4): 61.1 ml ESV(sp4-el): 64.3 ml EF(MOD-sp4): 37.5 % EF(sp4-el): 38.0 % LVAd ap2: 35.3 cm2 SV(MOD-sp4): 36.7 ml SV(MOD-sp2): 50.9 ml LVLd ap2: 8.1 cm EDV(MOD-sp2): 125.0 ml EDV(sp2-el): 130.7 ml LVAs ap2: 25.3 cm2 LVLs ap2: 7.0 cm ESV(MOD-sp2): 74.1 ml ESV(sp2-el): 77.4 ml EF(MOD-sp2): 40.7 % SV(sp4-el): 39.4 ml Doppler Measurements & Calculations TR max cb: 269.6 cm/sec TR max P.1 mmHg ECHO/Echo, Limited Study Interpretation Summary Normal LV size. The estimated ejection fraction is 40 %. Mild (1+) mitral valve insufficiency. Compared to previous study, the left ventricular systolic function has improved .. Ordering Physician: Lissett Waters Referring Physician: LILLY MARLOW Performed By: Daxa Clifton RDCS
== END | disposition home or self-care (01) ==
LOC: CVS 13:53
PROVIDERS: PCP Family Medicine; Referring Provider Nurse Practitioner Gerontology; Visit Provider Nurse Practitioner Gerontology
DX: I50.21 Acute systolic (congestive) heart failure (principal); I42.9 Cardiomyopathy, unspecified
CPT/HCPCS: 93308

== ENCOUNTER 2023-12-18 09:55 | Emergency (ER) | payer MEDICARE, SELFPAY ==
[2023-12-18 09:55] VITALS: BP 137/100; PULSE 82; RESP 14; TEMP 35.7; O2SAT 95
--- NOTE | 2023-12-18 10:13 | RAD_ITS ---
STUDY: X-RAY - LEFT KNEE REASON FOR EXAM: Female, 77 years old. injury TECHNIQUE: 2 view(s) of the knee. COMPARISON: None. FINDINGS: Acute, multi fragmented nondisplaced osteochondral patellar fracture with soft tissue swelling. There is demineralization of the visualized distal femur. There is demineralization of the tibia and fibula. Normal proximal tibiofibular articulation. There is moderate degenerative arthrosis of the medial femorotibial compartment with moderate joint space narrowing. There is mild degenerative arthrosis of the lateral femorotibial compartment. There is moderate degenerative arthrosis of the patellofemoral articulation. There is a small joint effusion with evidence of chondrocalcinosis in the medial and lateral compartments. RAD/Knee 1 or 2 Views IMPRESSION: Acute nondisplaced osteochondral patellar fracture with soft tissue swelling Tricompartmental arthrosis with chondrocalcinosis and joint effusion Electronically Signed: Nelson Roman MD at 10:36 EDT ,
--- NOTE | 2023-12-18 10:13 | CT_ITS ---
STUDY: CT BRAIN WITHOUT CONTRAST REASON FOR EXAM: Female, 77 years old. Headache after trauma RADIATION DOSAGE (If Supplied By Facility): CTDIvol = ( 44.99 ) mGy, DLP = ( 745.49 ) mGycm TECHNIQUE: Transaxial CT imaging of the brain was performed without administration of intravenous contrast material. Individualized dose optimization techniques were used for this CT. COMPARISON: No relevant priors. FINDINGS: Normal soft tissue structures. Normal calvarium. Normal size ventricles and extra-axial spaces for the patient''s age. There are areas of decreased attenuation within the white matter tracts of the supratentorial brain, consistent with microvascular disease changes. Normal basal ganglia and thalami. Normal brainstem. Normal cerebellum. There is no intracranial hemorrhage. There are no findings of an acute ischemic infarction. Normal visualized paranasal sinuses. CT/Brain/Head without Contrast IMPRESSION: Age consistent senescent changes, no acute findings Electronically Signed: Nelson Roman MD at 10:28 EDT ,
--- NOTE | 2023-12-18 10:14 | EX.ED.DYSGE1 ---
HPI History of Present Illness Chief Complaint: Lower Extremity Injury Informant: patient and family Narrative Narrative: Here with son for evaluation mechanical fall occurring yesterday. Walking outside cane got stuck momentum going forward. Falling on bilateral knee injuring knees left hand and glasses hit the ground with abrasions. She is on Eliquis for history of paroxysmal A-fib. She denies headache neck pain chest pain back pain. Pain mostly in her left knee causing her difficulty ambulating. 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 She is following [facility]. Unclear on her last tetanus. [facility] Medical History Cardiomyopathy HTN (hypertension), benign CHF (congestive heart failure), NYHA class III Atrial fibrillation with RVR Home Medications ?Medication ?Instructions ?Recorded ?Last Taken ?Type sacubitril 24 mg-valsartan 26 mg 1 tab PO BID #180 tabs 01/22/23 04/29/23 Rx tablet (Entresto) spironolactone 25 mg tablet 25 mg PO DAILY #90 tabs 02/25/23 04/29/23 Rx amiodarone 200 mg tablet 200 mg PO DAILY #90 tabs 04/03/23 04/29/23 Rx metoprolol succinate 50 mg 50 mg PO BID #180 tabs 05/06/23 Unknown Rx tablet,extended release 24 hr furosemide 40 mg tablet 40 mg PO DAILY #90 tabs 07/07/23 Unknown Rx apixaban 5 mg tablet (Eliquis) 5 mg PO BID #180 tabs 09/25/23 Unknown Rx Allergy/AdvReac Type Severity Reaction Status Date / Time No Known Allergies Allergy Verified 12/18/23 09:56 Surgical History Status post right foot surgery Social History Smoking Status: Never smoker ROS ROS ED Constitutional Constitutional ED: Denies chills, fever(s) or sweats Eyes Eyes: Denies change in vision ENT ENT ED: Denies dysphagia or sore throat Cardiovascular Cardiovascular: Denies chest pain, leg edema, palpitations or racing heartbeat Respiratory/Chest Respiratory/Chest: Denies cough, dyspnea or dyspnea on exertion Gastrointestinal Gastrointestinal: Denies abdominal pain, diarrhea, nausea or vomiting Genitourinary Genitourinary ED: Denies dysuria, hematuria or urinary frequency Musculoskeletal Musculoskeletal: Reports extremity pain; Denies back pain or neck pain Integumentary Denies rash or wounds Neurologic Neurologic: Denies headache(s), paresthesias or weakness EXAM Physical Exam Const Vital Signs: 12/18/23 09:55 12/18/23 11:29 Temperature 96.2 F L 97.3 F L Temperature Source Temporal Pulse Rate 82 84 Respiratory Rate 14 18 Blood Pressure 137/100 H 130/85 H Blood Pressure Mean 112 100 Pulse Ox 95 98 Oxygen Delivery Method Room Air Positive well nourished and well developed Constitutional Narrative: GCS 15 General Appearance ED: well developed and NAD HEENT Reports moist mucous membranes HEENT Narrative: Light swelling above the nasal, abrasion lateral aspect of the face along the glasses line. No scalp contusions. normocephalic Eyes EOMs intact bilaterally and conjunctivae normal General Eye ED: Yes normal appearance of both eyes Neck full ROM, no lymphadenopathy and supple Neck Narrative: No midline tenderness General: Negative for tenderness Chest Wall Chest Narrative: Symmetric breath sounds with no tenderness. Chest: Negative for tenderness Resp normal respiratory effort and normal air movement Effort and Inspection: symmetric chest movement; Negative for respiratory distress Cardio regular rate, regular rhythm and no murmurs Peripheral Pulses: pulses 2+ throughout GI normal to inspection, nondistended, normoactive bowel sounds and non-tender Palpation: Negative for guarding or rebound tenderness present Back/Spine no CVA tenderness and no thoracic nor lumbar tenderness Back/Spine Narrative: No midline thoracic or lumbar tenderness. Extremity Extremity Narrative: Negative logroll of the lower extremities. Right lower extremity: Knee extensor intact, mild abrasion infrapatellar no patellar pain. Negative varus and valgus. No deformities. Pulses intact distally. Left lower extremity: Negative logroll. Knee extensor intact however is painful at the mid patellar. No defects of the quadriceps tendon or patellar ligament. There is abrasion infrapatellar. No deformities. Negative varus and valgus. Pulses are intact distally. Right upper extremity: Full range of motion all tenderness. Left upper extremity: No shoulder elbow or wrist tenderness there is abrasion ulnar aspect of the wrist along with abrasion dorsal hand with swelling at the distal third metacarpal. No deformities. Skin is intact. General Extremety ED: Negative for edema or tenderness General Extremity: Negative for edema Neuro oriented x3, CN's II-XII intact bilaterally and no sensory deficits noted Sensorium / Orientation: awake and alert Skin no rashes or lesions noted and no wounds MDM MDM MDM Narrative Medical decision making narrative: Interventions / MDM: Differential diagnosis: Fracture, abrasions, contusion Diagnosis considered but do not suspect: Intracranial hemorrhage however CT brain negative. My EKG interpretation: N/A Imaging independently reviewed and interpreted by myself: CT brain: No acute process. Left hand x-ray 3 views: No fracture noted. Left knee x-ray 2 views: Transverse fracture across the mid patellar. External documents reviewed: N/A Test considered but not ordered:N/A ED course: Patient with a fall mechanically. Head injury left hand injury left knee injury. There is abrasions. Tetanus updated. She declined any pain medicines. She is on Eliquis, head injury, CT head ordered. X-ray left hand and left knee. Knee extensor mechanism intact. CT brain negative, left hand x-ray negative. Left knee positive for transverse nondisplaced fracture. She placed in a knee immobilizer, she was able to family with a walker. She is given follow-up with orthopedics as an outpatient. Re-evaluation: stable Disposition discussed with patient/family/significant other: Patient and family Case discussed with consulting clinician: N/A This note was generated with [employer] dictation software. It may contain incorrect words, spelling, and punctuation that were not noted in checking the note before signing. 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 No subchondral erosions No demonstrated fracture Chondrocalcinosis Electronically Signed: Nelson Roman MD at 10:38 EDT , Discharge Plan Triage Chief Complaint: Lower Extremity Injury ED Provider: Taj Ferreira Dx/Rx/DC Orders Clinical Impression: Closed fracture of left patella, Contusion of hand, left, Head injury, Abrasions of multiple sites, Chronic anticoagulation, Tetanus toxoid vaccination administered at current visit Instructions: ED Hand Contusion, ED Head Injury (Adult), ED Patella Fracture Prescriptions: No Action Entresto 24-26 mg tablet 1 tab PO BID Qty: 180 3RF metoprolol succinate 50 mg tablet extended release 24 hr 50 mg PO BID Qty: 180 3RF Eliquis 5 mg tablet 5 mg PO BID Qty: 180 3RF spironolactone 25 mg tablet 25 mg PO DAILY Qty: 90 3RF amiodarone 200 mg tablet 200 mg PO DAILY Qty: 90 3RF furosemide 40 mg tablet 40 mg PO DAILY Qty: 90 3RF Primary Care Provider: Asad Dimas Referrals: Asad Dimas MD [Primary Care Provider] - Rudy Beyer DO [Med Staff - Active Staff] - 3-5 Days Activity Restrictions/Additional Instructions: Horizontal fracture left patellar. Knee immobilizer to help with comfort. Use the walker. Tylenol or acetaminophen every [address] head negative. Left hand x-ray negative. Call to follow-up with Dr. Beyer to discuss treatment options. Continue your home medications. Print Language: Citizen Of [place] Disposition Disposition: Home, Self Care Discharge Date/Time: 12/18/23 11:30
--- NOTE | 2023-12-18 10:20 | RAD_ITS ---
STUDY: X-RAY - LEFT HAND REASON FOR EXAM: Female, 77 years old. Pain and stiffness TECHNIQUE: 4 view(s) of the hand. COMPARISON: None. FINDINGS: There is joint space narrowing of the radiocarpal articulation consistent with degenerative arthrosis. Normal distal radioulnar joint. There is chondrocalcinosis in the TFCC Normal visualized carpal bones. Intracarpal arthrosis. There is degenerative arthrosis of the carpometacarpal (CMC) articulation of the thumb. Normal second through fifth carpometacarpal joints. Normal metacarpi. There is degenerative arthrosis of the metacarpophalangeal (MCP) joints. Normal interphalangeal joint of the thumb. Normal proximal and distal phalanges of the thumb. There is degenerative arthrosis of the metacarpophalangeal (MCP) joints. There is diffuse articular joint space narrowing of the proximal and distal interphalangeal joints of the second through fifth fingers, but without erosive changes or periarticular soft tissue swelling. Normal phalanges of the second through fifth fingers. The soft tissue structures are unremarkable. 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 No subchondral erosions No demonstrated fracture Chondrocalcinosis Electronically Signed: Nelson Roman MD at 10:38 EDT ,
[2023-12-18] MEDS: Diphth,Pertuss(Acell),Tet Vac 0.5 ML Vial IM (11:03)
[2023-12-18 11:29] VITALS: BP 130/85; PULSE 84; RESP 18; TEMP 36.3; O2SAT 98
== END 2023-12-18 11:30 | disposition home or self-care (01) ==
PROVIDERS: Emergency Provider Emergency Medicine; PCP Family Medicine; Visit Provider Emergency Medicine
DX: S82.015A Nondisplaced osteochondral fracture of left patella, initial encounter for closed fracture (principal); I11.0 Hypertensive heart disease with heart failure; I50.9 Heart failure, unspecified; I48.0 Paroxysmal atrial fibrillation; S60.222A Contusion of left hand, initial encounter; S00.81XA Abrasion of other part of head, initial encounter; S60.812A Abrasion of left wrist, initial encounter; W01.0XXA Fall on same level from slipping, tripping and stumbling without subsequent striking against object, initial encounter; Y93.01 Activity, walking, marching and hiking; Y99.8 Other external cause status; Z79.01 Long term (current) use of anticoagulants; Z79.899 Other long term (current) drug therapy; Z86.16 Personal history of COVID-19; Z23 Encounter for immunization
CPT/HCPCS: 70450; 73130; 73560; 90715; 99283

== ENCOUNTER → 2025-01-14 | Outpatient (CLI) | payer MEDICARE, SELFPAY ==
[2025-01-14 11:03] LABS: Anion Gap 15 (5-15); BUN 41 mg/dL (4-19); BUN/Creat Ratio 27.8 RATIO (10-20); Calcium,Total 9.5 mg/dL (7.6-11.0); Carbon Dioxide 21.5 mmol/L (21.0-32.0); Chloride 103 mmol/L (98-108); Cholesterol 192 mg/dL (<=200); Creatinine, Serum 1.49 mg/dL (0.70-1.20); EST Glomerular Filtration Rate 36 (>60); Glucose 89 mg/dL (70-99); High Density Lipoprotein 43 mg/dL; Low Density Lipoprotein Calc. 129 mg/dL; Potassium 4.5 mmol/L (3.3-5.1); Sodium Level 139 mmol/L (133-145); Triglycerides 96 mg/dL; Very Low Density Lipoprotein 19 mg/dL (5-40); cholesterol:hdl ratio screen 4.42
== END | disposition home or self-care (01) ==
LOC: LAB 09:06
PROVIDERS: PCP Family Medicine; Referring Provider Student in an Organized Health Care Education/Training Program; Visit Provider Student in an Organized Health Care Education/Training Program
DX: E78.5 Hyperlipidemia, unspecified (principal); I48.19 Other persistent atrial fibrillation; I10 Essential (primary) hypertension
CPT/HCPCS: 36415; 80048; 80061